=== PATIENT | female | born 1960 | race Caucasian/White ===

== ENCOUNTER → 2018-02-09 | Outpatient (CLI) | payer BC ==
--- NOTE | 2018-02-10 13:33 | MM ---
Reason for exam: screening (asymptomatic). Last mammogram was performed 11 years and 5 months ago. History: Patient is postmenopausal. Took hormonal contraceptives beginning at age 17. Physical Findings: A clinical breast exam by your physician is recommended on an annual basis and results should be correlated with mammographic findings. MG Screening Mammo w CAD Bilateral CC and MLO view(s) were taken. No prior studies available for comparison. The breast tissue is heterogeneously dense. This may lower the sensitivity of mammography. Finding: There are typically benign round calcifications in the left breast. There is no discrete abnormality. ASSESSMENT: Benign, BI-RAD 2 RECOMMENDATION: Routine screening mammogram of both breasts in 1 year.
== END | disposition home or self-care (01) ==
LOC: RADMAMWWP 15:19
PROVIDERS: ATTEND Family Medicine
DX: Z12.31 Encounter for screening mammogram for malignant neoplasm of breast (principal)
CPT/HCPCS: 77067

== ENCOUNTER → 2018-03-16 | Outpatient (CLI) | payer BC ==
--- NOTE | 2018-03-17 11:55 | ECHOF ---
Referral Reason:R00.2 palpitations MEASUREMENTS -------- HEIGHT: 157.5 cm WEIGHT: 79.4 kg BP: IVSd: 1.3 cm (0.6 - 1.1) LVIDd: 4.0 cm (3.9 - 5.3) LVPWd: 1.2 cm (0.6 - 1.1) IVSs: 1.4 cm LVIDs: 2.5 cm LVPWs: 1.6 cm LA Diam: 2.8 cm (2.7 - 3.8) LAESV Index (A-L): 27.32 ml/m Ao Diam: 2.4 cm (2.0 - 3.7) AV Cusp: 1.8 cm (1.5 - 2.6) LA Diam: 3.7 cm (2.7 - 3.8) MV EXCURSION: 17.245 mm (> 18.000) MV EF SLOPE: 88 mm/s (70 - 150) EPSS: 0.4 cm MV E Lorenzo: 0.68 m/s MV DecT: 209 ms MV A Lorenzo: 0.61 m/s MV E/A Ratio: 1.13 RAP: 5.00 mmHg RVSP: 21.33 mmHg FINDINGS -------- Sinus rhythm. This was a technically good study. The left ventricular size is normal. There is mild concentric left ventricular hypertrophy. Overa ll left ventricular systolic function is low-normal with, an EF between 50 - 55 %. The right ventricle is normal in size. The left atrial size is normal. Normal LA size by volume 22+/-6 ml/m2. The right atrial size is normal. Trace to mild aortic regurgitation. Mild mitral annular calcification present. Mild mitral regurgitation is present. Mild tricuspid regurgitation present. There is no evidence of pulmonary hypertension. The right v entricular systolic pressure, as measured by Doppler, is 21.33mmHg. There is no pulmonic regurgitation present. The aortic root size is normal. There is no pericardial effusion. CONCLUSIONS -------- 1. The left ventricular size is normal. 2. There is mild concentric left ventricular hypertrophy. 3. Overall left ventricular systolic function is low-normal with, an EF between 50 - 55 %. 4. The left atrial size is normal. 5. Trace to mild aortic regurgitation. 6. Mild mitral annular calcification present. 7. Mild mitral regurgitation is present. 8. Mild tricuspid regurgitation present. 9. There is no evidence of pulmonary hypertension. 10. The right ventricular systolic pressure, as measured by Doppler, is 21.33mmHg. 11. There is no pulmonic regurgitation present. 12. The aortic root size is normal. 13. There is no pericardial effusion. NEPHROLOGY SOCIAL WORKER: Rajwinder Kumar RDCS
== END ==
LOC: RADECHMAIN 14:53
PROVIDERS: ATTEND Family Medicine
DX: I08.3 Combined rheumatic disorders of mitral, aortic and tricuspid valves (principal)
CPT/HCPCS: 93306

== ENCOUNTER 2019-03-23 06:30 | Day surgery (SDC) | payer BC ==
[2019-03-16 15:06] VITALS: BMI 32.9
[~2019-03-23 06:30] MED LIST: DEXAMETHASONE SOD PHOSPHATE 10 MG/ML 1 ML VIAL IV ONE; HYDROmorphone 0.5 MG/0.5 ML SYRINGE IVP PRN; LACTATED RINGERS 1,000 ML IV SCH; LIDOCAINE 1% 20 ML VIAL (10MG/ML) FOR IV START INTRADERMA PRN; ONDANSETRON 4 MG/2 ML VIAL IVP ONE; ceFAZolin IN SWFI 2 GM/20 ML SYRINGE IVP ONE
[2019-03-23] MEDS ORDERED: fentaNYL (PF) 50 MCG/ML 2 ML AMP ONE (07:58)
[2019-03-23] MEDS ORDERED: PROPOFOL 10 MG/ML 20 ML VIAL IV ONE (07:58)
[2019-03-23] MEDS ORDERED: HYDROmorphone (PF) 1 MG/ML ONE (07:58)
[2019-03-23] MEDS ORDERED: NEOSTIGMINE 1 MG/ML 10 ML VIAL ONE (07:58)
[2019-03-23] MEDS ORDERED: ROCURONIUM BROMIDE 10 MG/ML 10 ML VIAL IV ONE (07:58)
[2019-03-23] MEDS ORDERED: LIDOCAINE 1% INJ 10MG/ML (20 ML MDV) ONE (07:58)
[2019-03-23] MEDS ORDERED: MIDAZOLAM 2 MG/2 ML VIAL ONE (07:58)
[2019-03-23] MEDS ORDERED: SUCCINYLCHOLINE CHLORIDE 100 MG/5 ML SYR IV ONE (07:58)
[2019-03-23] MEDS ORDERED: GLYCOPYRROLATE 0.2 MG/ML 2 ML VIAL ONE (07:58)
[2019-03-23] MEDS ORDERED: BUPIVACAINE (PF) 0.5% 30 ML VIAL SQ ONE (08:47)
[2019-03-23] MEDS ORDERED: LIDOCAINE 2% (PF) 20 MG/ML 10 ML AMP SQ ONE (08:47)
--- NOTE | 2019-03-23 10:03 | P.OP ---
Date of Procedure: 03/23/19 Preoperative Diagnosis: 1. Left arthritic hallux valgus 2. Left second crossover toe deformity Postoperative Diagnosis: Same Procedure(s) Performed: 1. Left first MTP arthrodesis 2. Left second toe Girdlestone-Nicolasa oqcdrp-eh-vlzhlwnb tendon transfer, MTP capsulotomy, and Z-lengthening of the long extensor tendon 3. Application of short leg splint by physician, left leg Anesthesia: GETA Surgeon: Cristofer Martinez Milk Vendor #1: Lashonda Richardson Estimated Blood Loss (ml): 5 IV fluids (ml): 1,000 Pathology: none sent Condition: stable Disposition: PACU Indications for Procedure: The patient is a very pleasant 58-year-old female who presented to my office with a painful left arthritic hallux valgus and second crossover toe deformity. She had failed over 6 months of nonsurgical treatment and requested surgery. Since she had failed a lengthy course of nonsurgical treatment I agreed that proceeding with surgery was reasonable. My recommendation was to address her severely arthritic hallux valgus with a first MTP fusion and correct the second toe deformity with an MTP capsulotomy, extensor tendon lengthening, and flexor to extensor tendon transfer. She had had previous surgery on her right foot and had recurrence of her lesser toe deformities. I discussed the potential risks and complication of surgery including but not limited to risk of anesthesia, superficial infection, deep infection, delayed wound healing, superficial wound necrosis, nonunion of the fusion site, malunion of the fusion site, syndromatic hardware, hardware failure, damage to local blood vessels or nerves, chronic pain, under correction of the deformity, overcorrection of the deformity, recurrent deformity of the second toe, a second floating toe, damage to local blood vessels or nerves in the second toe, generalized to satisfaction with surgery, pin site complication, DVT, PE, other medical complications, and possibly loss of life or limb. The patient voiced her understanding of these potential complications and also acknowledges that other less common complications are possible. She provided her verbal and written consent to go forward with surgery. Description of Procedure: The patient was identified in preoperative holding and the correct left leg was marked with my initials. I reviewed the consent form with the patient and her . All of their questions were answered. The patient was then brought back to the operating room. She was transferred to the OR table where a general anesthetic and preoperative antibiotics were given. A tourniquet was applied to the proximal aspect the left leg. All bony prominences were well-padded. A bump was placed on the left buttock to internally rotate the leg to neutral. The left leg was then prepped and draped in the standard sterile fashion. Prior to starting surgery timeout was performed identifying the correct patient, operative extremity, and procedure. The patient's leg was then elevated, exsanguinated with an Esmarch bandage, and the tourniquet was inflated to 250 mmHg. I began by outlining a straight dorsal incision to the first MTP joint. Skin incision was made a scalpel and dissection was carried down carefully through the subcutaneous tissue taking care to not undermine the skin flaps. The EHL tendon was identified, its sheath was incised, and the tendon was retracted laterally. The capsule was then incised longitudinally in line with the skin incision. The joint was circumferentially exposed. On inspection there is full thickness cartilage loss of both the first metatarsal head and base of the pr oximal phalanx. There were large osteophytes off the distal end of the first metatarsal that were contoured with a Ronguer. A K wire was then placed on the central aspect of the first metatarsal head. A 21 mm concave reamer was used to remove the remaining articular cartilage and subchondral bone down to healthy bleeding bone. The K wire was withdrawn and used to perforate the subchondral bone to facilitate fusion. A K wire was then placed down the central access of the proximal phalanx. A 21 mm convex reamer was used to remove the remaining articular cartilage down to the level of healthy, bleeding subchondral bone. The K wire was withdrawn and used to perforate the subchondral bone to help facilitate fusion. The joint was thoroughly irrigated. The joint was positioned for fusion and slight dorsiflexion and valgus and a K wire was placed from the medial aspect of the distal first metatarsal into the lateral aspect of the proximal phalanx. The toe was positioned and pinned in place the position of the fusion was verified with a flat plate and with fluoroscopy. A Snow 28 fusion plate was then positioned over the dorsal aspect of the first MTP joint. Once it was in acceptable position and it was pinned proximally and distally holding the plate centered on the bone. The targeting arm for a lag screw was placed in a nonlocking, partially threaded 2.7 mm cannulated lag screw was placed across the joint generating excellent compression. I then placed nonlocking screws proximal and distal to the fracture bring the plate down to bone. Locking screws were then placed proximally and distally. Final fluoroscopic images were taken verifying position of the fusion and hardware. The wound was thoroughly irrigated and closed in layers with a running 2-0 Vicryl for the capsule, 3-0 Monocryl for the deep subcu, and 3-0 nylon for the skin. Attention was then turned to the second toe. A longitudinal incision was made centered directly over the dorsal aspect of the proximal phalanx and MTP joint. Dissection was carried down carefully to the subcutaneous tissue. A Z- lengthening was performed of the long extensor tendon. The MTP capsule was sharply incised. A stab incision was made at the base of the second toe plantarly and the flexor tendon sheath was identified and incised. A mosquito hemostat was used to grasp the long flexor tendons. A 15 blade scalpel was then used to sharply release the long flexor tendons distally at the DIP flexion crease. Both tendons were brought up into the wound at the base of the second toe. The tendon was split along its midline raphae. A stab incision was made dorsally over the proximal phalanx and the extensor tendon mechanism. Mosquito hemostats were tunneled subperiosteally medial and lateral to the proximal phalanx and both limbs of the flexor tendon were transferred dorsally into the extensor mechanism. The toe was positioned and a 0.0625 K wire was driven from the tip of the toe across the MTP joint into the second metatarsal. The flexor tendon was then secured into the extensor mechanism with 3-0 FiberWire. The long extensor tendon was repaired in a lengthened position using 3-0 FiberWire. The pin was cut and capped. Both wounds were thoroughly irrigated and closed in layers. I verified that all instrument, sponge, and sharp counts were correct. A sterile dressing was applied. A well-padded bulky Rodriguez splint was placed with the ankle at neutral. The patient was awoken from her anesthetic, transferred to a gurney, and brought to the recovery room having encountered procedure well. Lashonda Richardson PA-C was required as a skilled customer support assistant for patient positioning, surgical exposure, retraction, performance effusion, closure of wound, application of dressing, and placement of splint. Plan: The patient is going to be discharged home as an outpatient. She is to remain strictly nonweightbearing on her operative extremity and a bulky Rodriguez splint. The patient's was instructed on twice daily pin site care with a Q-tip tipped and peroxide. She is going to be treated with aspirin 325 mg twice daily to lower her risk of a DVT. He was given a prescription for narcot ic pain medication and was instructed take a stool softener while taking narcotic pain medication. She'll follow-up in the office in 2 weeks for splint removal, wound check, and nonweightbearing x-rays of the left foot.
[2019-03-23 10:25] VITALS: TEMP 97.1
--- NOTE | 2019-03-23 11:03 | XR ---
Limited left foot HISTORY: Arthrodesis 2 intraoperative C-arm images document the procedure
--- NOTE | 2019-03-23 11:04 | FL ---
Fluoroscopy HISTORY: Arthrodesis 5 seconds fluoroscopy time supplied to the referring clinician. 2 intraoperative C-arm images docume nt the procedure. See dictated report from orthopedic surgery.
[2019-03-23 11:23] VITALS: RESP 18
[2019-03-23] MEDS ORDERED: oxyCODONE-APAP 5-325MG 1 EACH TAB PO ONE (11:48)
[2019-03-23 12:05] VITALS: BP 118/72; PULSE 79
--- NOTE | 2019-03-23 14:08 | P.ANPRN ---
Procedure Note - Anesthesia - Nerve Block Performed Left Popliteal Single Time Out Performed: Yes Date of Procedure: 03/23/19 Procedure Start Time: 10:55 Location of Patient Procedure: PreOp Indication: Acute Post-Operative Pain, Requested by physician Specifically requested for management of pain by DrKole: Cristofer Martinez Sedation Type: Sedate with meaningful contact maintained Preparation: Sterile Prep Position: Right Lateral Catheter: None Needle Types: Pajunk Needle Gauge: 20 Technique: Ultrasound Injectate: 0.5% Ropivacaine (see comment for volume) (20cc) Blood Aspirated: No Pain Paresthesia on Injection Noted: No Resistance on Injection: Normal Events: Uneventful and Well Tolerated
== END 2019-03-23 12:30 | disposition home or self-care (01) ==
LOC: OR 06:30
PROVIDERS: ATTEND Orthopaedic Surgery
DX: M20.22 Hallux rigidus, left foot (principal); M20.5X2 Other deformities of toe(s) (acquired), left foot; E78.5 Hyperlipidemia, unspecified; F41.9 Anxiety disorder, unspecified; J44.9 Chronic obstructive pulmonary disease, unspecified; F90.9 Attention-deficit hyperactivity disorder, unspecified type; M19.90 Unspecified osteoarthritis, unspecified site; M19.072 Primary osteoarthritis, left ankle and foot; I10 Essential (primary) hypertension; F17.210 Nicotine dependence, cigarettes, uncomplicated; R63.5 Abnormal weight gain; Z68.31 Body mass index [BMI] 31.0-31.9, adult; F32.9 Major depressive disorder, single episode, unspecified; Z79.1 Long term (current) use of non-steroidal anti-inflammatories (NSAID); Z79.899 Other long term (current) drug therapy; Z98.1 Arthrodesis status; Z98.51 Tubal ligation status; Z97.3 Presence of spectacles and contact lenses

== ENCOUNTER → 2020-04-19 | Outpatient (CLI) | payer BC ==
--- NOTE | 2020-04-19 16:25 | MR ---
EXAMINATION TYPE: MR lumbar spine wo/w con DATE OF EXAM: 04/19/2020 COMPARISON: None HISTORY: Low back pain CONTRAST: 9 mL intravenous Gadavist. TECHNIQUE: Multiplanar, multisequence images of the lumbar spine were acquired. FINDINGS: Cord terminates at the L1 level. L5-S1: No significant disc bulge or disc herniation. No spinal canal stenosis. No foraminal stenosi s. Minimal facet hypertrophy is present. L4-L5: Based disc bulge is present with anterior thecal sac flattening. No AP spinal canal stenosis i s present. Neural foramen are patent. L3-L4: No significant disc bulge or disc herniation. No spinal canal stenosis. No foraminal stenosi s. Mild facet hypertrophy and ligamentum flavum laxity is present with posterior lateral thecal sac compression. L2-L3: There is right paracentral disc bulge with mild anterior thecal sac contact. No AP spinal hernandez l stenosis present. Facet hypertrophy and ligamentum flavum laxity is posterior lateral thecal sac co mpression. Neural foramen are patent L1-L2: There is loss of disc height to this level. Right paracentral bulging is present with anterior thecal sac compression. No AP spinal canal stenosis present. Neural foramen are patent. Mild facet h ypertrophy is present. T12-L1: No significant disc bulge or disc herniation. No spinal canal stenosis. No foraminal stenos is. No abnormal enhancement. No disc enhancement is evident. IMPRESSION: 1. Degenerative disc changes, loss of disc height, and endplate changes L1-2. 2. Right paracentral disc bulging may have subligamentous disc extension in the right paracentral reg ion. This has mild anterior thecal sac compression without stenosis. 3. Mild right paracentral disc bulge L2-L3 with mild anterior thecal sac compression.
== END | disposition home or self-care (01) ==
LOC: RADMRIMAIN 14:45
PROVIDERS: ATTEND Family Medicine
DX: M51.26 Other intervertebral disc displacement, lumbar region (principal); M47.896 Other spondylosis, lumbar region
CPT/HCPCS: 72158; A9585

== ENCOUNTER → 2020-04-24 | Outpatient (CLI) | payer BC ==
--- NOTE | 2020-04-24 12:08 | MM ---
Reason for exam: screening (asymptomatic). Last mammogram was performed 2 years and 2 months ago. History: Patient is postmenopausal. Took hormonal contraceptives beginning at age 17. Physical Findings: A clinical breast exam by your physician is recommended on an annual basis and results should be correlated with mammographic findings. MG 3D Screening Mammo W/Cad Bilateral CC and MLO view(s) were taken. Prior study comparison: February 09, 2018, bilateral MG screening mammo w CAD. There are scattered fibroglandular densities. Benign oil cyst calcification on the left. No significant changes when compared with prior studies. ASSESSMENT: Benign, BI-RAD 2 RECOMMENDATION: Routine screening mammogram of both breasts in 1 year.
== END | disposition home or self-care (01) ==
LOC: RADMAMWWP 07:18
PROVIDERS: ATTEND Family Medicine
DX: Z12.31 Encounter for screening mammogram for malignant neoplasm of breast (principal)
CPT/HCPCS: 77063; 77067

== ENCOUNTER 2020-07-24 19:36 | Inpatient (IN) | payer BC ==
--- NOTE | 2020-07-24 19:47 | ED ---
Psych HPI <Sharmin Baldwin - Last Filed: 07/24/20 22:52> <Zac Mendez - Last Filed: 07/25/20 09:44> - General Source: RN notes reviewed, old records reviewed Limitations: altered mental status, physical limitation (Patient refuses to speak) - History of Present Illness MD Complaint: suicidal ideation, feels depressed, other (Alcohol intoxication) -: unknown Quality: intermittent Improves With: none Worsens With: none Context: recent alcohol abuse, recent drug abuse Treatments Prior to Arrival: placed on mental health hold <Zac Beal - Last Filed: 07/27/20 22:47> - General Stated Complaint: Mental Health Time Seen by Provider: 07/24/20 19:47 - History of Present Illness Initial Comments: This is a 5-year-old female DF for evaluation patient's for psychiatric evaluation patient is intoxicated answer questions (Zac Beal) - Related Data Previous Rx's Medication Instructions Recorded Atorvastatin [Lipitor] 10 mg PO DAILY 14 Days tab 07/27/20 Bacitracin Zinc Oint 1 applic TOPICAL BID 14 Days 07/27/20 applic Cyclobenzaprine [Flexeril] 10 mg PO DAILY 14 Days tab 07/27/20 FLUoxetine HCL [PROzac] 20 mg PO DAILY 30 Days cap 07/27/20 Nicotine 14Mg/24Hr Patch [Habitrol] 1 patch TRANSDERM DAILY 30 Days 07/27/20 patch Allergies Allergy/AdvReac Type Severity Reaction Status Date / Time naproxen [From Aleve] Allergy Anaphylaxis Verified 07/24/20 23:09 phenazopyridine Allergy Rash/Hives Verified 07/24/20 23:09 [From Pyridium] Review of Systems ROS Other: All systems not noted in ROS Statement are negative. <Sharmin Baldwin - Last Filed: 07/24/20 22:52> ROS Other: All systems not noted in ROS Statement are negative. <Zac Mendez - Last Filed: 07/25/20 09:44> ROS Other: All systems not noted in ROS Statement are negative. <Zac Beal - Last Filed: 07/27/20 22:47> ROS Statement: Those systems with pertinent positive or pertinent negative responses have been documented in the HPI. Past Medical History Past Medical History: Chest Pain / Angina, Osteoarthritis (OA) Additional Past Medical History / Comment(s): irreg. heart rate, kidney stones, inhaler used for breathing issues History of Any Multi-Drug Resistant Organisms: None Reported Past Surgical History: Back Surgery, Orthopedic Surgery, Tubal Ligation Additional Past Surgical History / Comment(s): rt thumb surgery tendon and trigger finger , rt carpal tunnel, rt rotator cuff , bunionectomy and hammer toe rt foot, c 5-6 spinal fusion Past Anesthesia/Blood Transfusion Reactions: No Reported Reaction Past Psychological History: Depression Past Alcohol Use History: Occasional Additional Past Alcohol Use History / Comment(s): smoker 30 years <1/2 ppd Past Drug Use History: None Reported - Past Family History Mother Family Medical History: No Reported History <Zac Beal Last Filed: 07/27/20 22:47> General Exam General appearance: alert, in no apparent distress Head exam: Present: atraumatic, normocephalic, normal inspection Eye exam: Present: normal appearance, PERRL, EOMI. Absent: scleral icterus, conjunctival injection, periorbital swelling ENT exam: Present: normal exam, mucous membranes moist Neck exam: Present: normal inspection. Absent: tenderness, meningismus, lymphadenopathy Respiratory exam: Present: normal lung sounds bilaterally. Absent: respiratory distress, wheezes, rales, rhonchi, stridor Cardiovascular Exam: Present: regular rate, normal rhythm, normal heart sounds. Absent: systolic murmur, diastolic murmur, rubs, gallop, clicks GI/Abdominal exam: Present: soft, normal bowel sounds. Absent: distended, tenderness, guarding, rebound, rigid Extremities exam: Present: normal inspection, full ROM, normal capillary refill. Absent: tenderness, pedal edema, joint swelling, calf tenderness Back exam: Present: normal inspection Neurological exam: Present: alert, oriented X3, CN II-XII intact Psychiatric exam: Present: normal affect, normal mood Skin exam: Present: warm, dry, intact, normal color. Absent: rash <Zac Beal Last Filed: 07/27/20 22:47> Course <Zac Beal Last Filed: 07/27/20 22:47> Vital Signs 07/24/20 07/24/20 07/25/20 19:45 19:49 06:56 Temperature 98.8 F Pulse Rate 72 80 Respiratory 17 18 16 Rate Blood Pressure 153/122 120/63 O2 Sat by Pulse 100 100 Oximetry - Reevaluation(s) Reevaluation #1: 07/24/20 21:03 Medical records reviewed 07/24/20 21:03 Patient will be clinically sober 0400 (Zac Beal) Procedures - Laceration Laceration #1 Consent Obtained: verbal consent Indication: laceration Site: upper extremity (Right wrist, palmar aspect) Size (cm): 5 Description: linear Depth: simple, single layer Anesthetic Used: lidocaine 1% Anesthesia Technique: local infiltration Amount (mls): 4 Pre-repair: irrigated extensively Type of Sutures: nylon Size of Sutures: 5-0 Number of Sutures: 9 Technique: simple, interrupted Patient Tolerated Procedure: well <Sharmin Baldwin - Last Filed: 07/24/20 22:52> Medical Decision Making - Lab Data Result diagrams: 07/24/20 20:01 07/24/20 20:01 <Sharmin Baldwin - Last Filed: 07/24/20 22:52> - Lab Data Result diagrams: 07/24/20 20:01 07/24/20 20:01 <Zac Mendez - Last Filed: 07/25/20 09:44> - Lab Data Result diagrams: 07/26/20 11:30 07/26/20 11:30 <Zac Beal - Last Filed: 07/27/20 22:47> - Medical Decision Making 59 female to ED w alcohol intoxication to be admitted for psychiatric evaluation and treatment (Zac Beal) - Lab Data Lab Results 07/24/20 07/24/20 07/24/20 Range/Units 20:01 20:01 20:01 WBC 7.9 (3.8-10.6) k/uL RBC 4.92 (3.80-5.40) m/uL Hgb 15.7 (11.4-16.0) gm/dL Hct 46.4 H (34.0-46.0) % MCV 94.3 (80.0-100.0) fL MCH 31.8 (25.0-35.0) pg MCHC 33.7 (31.0-37.0) g/dL RDW 12.8 (11.5-15.5) % Plt Count 328 (150-450) k/uL Neutrophils % 60 % Lymphocytes % 31 % Monocytes % 5 % Eosinophils % 1 % Basophils % 1 % Neutrophils # 4.8 (1.3-7.7) k/uL Lymphocytes # 2.4 (1.0-4.8) k/uL Monocytes # 0.4 (0-1.0) k/uL Eosinophils # 0.1 (0-0.7) k/uL Basophils # 0.1 (0-0.2) k/uL Sodium 141 (137-145) mmol/L Potassium 4.2 (3.5-5.1) mmol/L Chloride 110 H (98-107) mmol/L Carbon Dioxide 22 (22-30) mmol/L Anion Gap 9 mmol/L BUN 12 (7-17) mg/dL Creatinine 0.66 (0.52-1.04) mg/dL Est GFR (CKD-EPI)AfAm >90 (>60 ml/min/1.73 sqM) Est GFR (CKD-EPI)NonAf >90 (>60 ml/min/1.73 sqM) Glucose 119 H (74-99) mg/dL Calcium 10.0 (8.4-10.2) mg/dL Total Bilirubin 0.5 (0.2-1.3) mg/dL AST 36 (14-36) U/L ALT 36 H (4-34) U/L Alkaline Phosphatase 77 (38-126) U/L Ammonia 20 (<30) umol/L Total Protein 7.3 (6.3-8.2) g/dL Albumin 4.4 (3.5-5.0) g/dL Urine Color Urine Appearance (Clear) Urine pH (5.0-8.0) Ur Specific [place] (1.001-1.035) Urine Protein (Negative) Urine Glucose (UA) (Negative) Urine Ketones (Negative) Urine Blood (Negative) Urine Nitrite (Negative) Urine Bilirubin (Negative) Urine Urobilinogen (<2.0) mg/dL Ur Leukocyte Esterase (Negative) Salicylates <1.0 mg/dL Urine Opiates Screen (NotDetected) Ur Oxycodone Screen (NotDetected) Urine Methadone Screen (NotDetected) Ur Propoxyphene Screen (NotDetected) Acetaminophen <10.0 ug/mL Ur Barbiturates Screen (NotDetected) U Tricyclic Antidepress (NotDetected) Ur Phencyclidine Scrn (NotDetected) Ur Amphetamines Screen (NotDetected) U Methamphetamines Scrn (NotDetected) U Benzodiazepines Scrn (NotDetected) Urine Cocaine Screen (NotDetected) U Marijuana (THC) Screen (NotDetected) Serum Alcohol 279 H* mg/dL 07/25/20 Range/Units 07:45 WBC (3.8-10.6) k/uL RBC (3.80-5.40) m/uL Hgb (11.4-16.0) gm/dL Hct (34.0-46.0) % MCV (80.0-100.0) fL MCH (25.0-35.0) pg MCHC (31.0-37.0) g/dL RDW (11.5-15.5) % Plt Count (150-450) k/uL Neutrophils % % Lymphocytes % % Monocytes % % Eosinophils % % Basophils % % Neutrophils # (1.3-7.7) k/uL Lymphocytes # (1.0-4.8) k/uL Monocytes # (0-1.0) k/uL Eosinophils # (0-0.7) k/uL Basophils # (0-0.2) k/uL Sodium (137-145) mmol/L Potassium (3.5-5.1) mmol/L Chloride (98-107) mmol/L Carbon Dioxide (22-30) mmol/L Anion Gap mmol/L BUN (7-17) mg/dL Creatinine (0.52-1.04) mg/dL Est GFR (CKD-EPI)AfAm (>60 ml/min/1.73 sqM) Est GFR (CKD-EPI)NonAf (>60 ml/min/1.73 sqM) Glucose (74-99) mg/dL Calcium (8.4-10.2) mg/dL Total Bilirubin (0.2-1.3) mg/dL AST (14-36) U/L ALT (4-34) U/L Alkaline Phosphatase (38-126) U/L Ammonia (<30) umol/L Total Protein (6.3-8.2) g/dL Albumin (3.5-5.0) g/dL Urine Color Yellow Urine Appearance Clear (Clear) Urine pH 5.5 (5.0-8.0) Ur Specific [place] 1.015 (1.001-1.035) Urine Protein Negative (Negative) Urine Glucose (UA) Negative (Negative) Urine Ketones Negative (Negative) Urine Blood Negative (Negative) Urine Nitrite Negative (Negative) Urine Bilirubin Negative (Negative) Urine Urobilinogen <2.0 (<2.0) mg/dL Ur Leukocyte Esterase Negative (Negative) Salicylates mg/dL Urine Opiates Screen Not Detected (NotDetected) Ur Oxycodone Screen Not Detected (NotDetected) Urine Methadone Screen Not Detected (NotDetected) Ur Propoxyphene Screen Not Detected (NotDetected) Acetaminophen ug/mL Ur Barbiturates Screen Not Detected (NotDetected) U Tricyclic Antidepress Detected H (NotDetected) Ur Phencyclidine Scrn Not Detected (NotDetected) Ur Amphetamines Screen Not Detected (NotDetected) U Methamphetamines Scrn Not Detected (NotDetected) U Benzodiazepines Scrn Not Detected (NotDetected) Urine Cocaine Screen Not Detected (NotDetected) U Marijuana (THC) Screen Detected H (NotDetected) Serum Alcohol mg/dL Disposition <Sharmin Baldwin - Last Filed: 07/24/20 22:52> Time of Disposition: 09:44 <Zac Mendez - Last Filed: 07/25/20 09:44> Is patient prescribed a controlled substance at d/c from ED?: No <Zac Beal - Last Filed: 07/27/20 22:47> Clinical Impression: Depression, Suicide attempt Disposition: TRANSFER TO PSYCH HOSP/UNIT Condition: Fair
[2020-07-24 20:11] LABS: Basophils # (A) 0.1 k/uL (0-0.2); Basophils % (A) 1 %; Eosinophils # (A) 0.1 k/uL (0-0.7); Eosinophils % (A) 1 %; HCT 46.4 % (34.0-46.0); HGB 15.7 gm/dL (11.4-16.0); Lymphocytes # (A) 2.4 k/uL (1.0-4.8); Lymphocytes % (A) 31 %; MCH 31.8 pg (25.0-35.0); MCHC 33.7 g/dL (31.0-37.0); MCV 94.3 fL (80.0-100.0); Mean Platelet Volume 7.1; Monocytes # (A) 0.4 k/uL (0-1.0); Monocytes % (A) 5 %; Neutrophils # (A) 4.8 k/uL (1.3-7.7); Neutrophils % (A) 60 %; Platelet Count 328 k/uL (150-450); RBC 4.92 m/uL (3.80-5.40); RDW 12.8 % (11.5-15.5); WBC 7.9 k/uL (3.8-10.6)
[2020-07-24 20:21] LABS: ALT 36 U/L (4-34); AST 36 U/L (14-36); Acetaminophen <10.0 ug/mL; African American GFR (CKD) >90 (>60 ml/min/1.73 sqM); Albumin 4.4 g/dL (3.5-5.0); Alkaline Phosphatase 77 U/L (38-126); Anion Gap 9 mmol/L; Blood Urea Nitrogen 12 mg/dL (7-17); Carbon Dioxide 22 mmol/L (22-30); Chloride 110 mmol/L (98-107); Glucose 119 mg/dL (74-99); Non-African American GFR(CKD) >90 (>60 ml/min/1.73 sqM); Potassium 4.2 mmol/L (3.5-5.1); Salicylate <1.0 mg/dL; Sodium 141 mmol/L (137-145); Total Bilirubin 0.5 mg/dL (0.2-1.3); Total Protein 7.3 g/dL (6.3-8.2)
[2020-07-24 20:24] LABS: Alcohol 279 mg/dL
[2020-07-24] MEDS ORDERED: LIDOCAINE 1% INJ 10MG/ML (20 ML MDV) SQ ONE (22:16)
[2020-07-24] MEDS ORDERED: DIPH,PERTUS(ACELL)TETVAC-LF 0.5 ML VIAL IM ONE (22:16)
[2020-07-25 07:50] LABS: Appearance,Urine Clear (Clear); Bilirubin,Urine Negative (Negative); Blood,Urine Negative (Negative); Color,Urine Yellow; Glucose,Urine (UA) Negative (Negative); Ketones,Urine Negative (Negative); Leukocyte Esterase,Urine Negative (Negative); Nitrite,Urine Negative (Negative); PH, Urine 5.5 (5.0-8.0); Protein,Urine Negative (Negative); Specific Gravity,Urine 1.015 (1.001-1.035); Urobilinogen,Urine <2.0 mg/dL (<2.0)
[2020-07-25 08:01] LABS: Amphetamine Screen,Urine Not Detected (NotDetected); Barbiturate Screen,Urine Not Detected (NotDetected); Benzodiazepines Screen,Urine Not Detected (NotDetected); Cocaine Screen,Urine Not Detected (NotDetected); Methadone Screen, Urine Not Detected (NotDetected); Opiate Screen,Urine Not Detected (NotDetected); Oxycodone Screen, Urine Not Detected (NotDetected); Phencyclidine Screen,Urine Not Detected (NotDetected); Tricyclic Antidepressant,Urine Detected (NotDetected); Urn Cannabinoid Scrn Detected (NotDetected)
[2020-07-25] MEDS ORDERED: LORazepam 1 MG TAB PO PRN (10:48)
[2020-07-25] MEDS ORDERED: MAGNESIUM HYDROXIDE 2,400 MG/10 ML CUP PO PRN (10:48)
[2020-07-25] MEDS ORDERED: MAG HYDROX/AL HYDROX/SIMETH 30 ML CUP PO PRN (10:48)
[2020-07-25] MEDS: CYCLOBENZAPRINE 10 MG TAB PO SCH (12:22)
[2020-07-25] MEDS: ATORVASTATIN 10 MG TAB PO SCH (12:22)
[2020-07-25] MEDS: PARoxetine 20 MG TAB PO SCH (12:22)
--- NOTE | 2020-07-25 14:59 | P.CONS ---
History of Present Illness - Reason for Consult Consult date: 07/25/20 Medical management Requesting physician: Rayshawn Calvin - Chief Complaint Continue wrist - History of Present Illness Consultation: This is 59-year-old patient of Dr. Nando Gallagher. Patient's chronic stable medical conditions include osteoarthritis, kidney stones, depression, lower back muscle spasms hyperlipidemia. Patient presents to the ER with her was intoxicated. Patient states she was going about her usual shows yesterday and decided to drink alcohol. Normally doesn't do the same. She then landed up cutting her wrist laceration and: To in the next room. We'll brought into the ER. Alcohol was 279. Urine drug screen was positive for marijuana. Patient denies suicidal ideation. Not sure why she did it. She states depression is controlled. Received stitches in the ER. DTaP injection. Review of systems: GEN.: None EYES: None HEENT: None NECK: None RESPIRATORY: Occasional cough CARDIOVASCULAR: None GASTROINTESTINAL: None GENITOURINARY: None MUSCULOSKELETAL: Dressing over the right wrist LYMPHATICS: None HEMATOLOGICAL: None PSYCHIATRY: Slightly anxious NEUROLOGICAL: None Past medical history to include: Osteoarthritis, kidney stones, COPD, depression, hyperlipidemia Social history: Patient works at [employer]. . Smoked half a pack a day for over 30 years. Normally drinks a small amount of alcohol daily. Family history: Reviewed, noncontributory to presentation Physical examination: VITAL SIGNS: 97.1, 85, 16, 145/95, 100% room air GENERAL: BMI 38.4, sitting at edge of bed, comfortable. EYES: Pupils equal. Conjunctiva normal. HEENT: External appearance of nose and ears normal, oral cavity grossly normal. NECK: JVD not raised; masses not palpable. HEART: First and second heart sounds are normal; no edema. LUNGS:[ Respiratory rate normal; decreased breath sounds. ABDOMEN: Soft, nontender, liver spleen not palpable, no masses palpable. PSYCH: Alert and oriented x3; mood and affect normal MUSCULAR skeletal-dressing over the right wrist. NEUROLOGICAL: Cranial nerves grossly intact; no facial asymmetry, power and sensation grossly intact. LYMPHATICS: No lymph nodes palpable in the axilla and neck INVESTIGATIONS, reviewed in the clinical context: White count 7.9 hemoglobin 15.7 platelets 328 potassium 4.2 creatinine 0.66 UA negative, urine drug screen positive for tricyclic antidepressants, marijuana Serum alcohol 279 Assessment: -Acute alcohol intoxication upon presentation -Right wrist laceration on the palmar side patient received stitches in the ER. Received DTaP immunization. Has a dressing over the same. We will use bacitracin cream -Obesity BMI 38.4 -Chronic nicotine dependence cigarette smoker -COPD in a smoker -Hyperlipidemia -Muscle spasms lower back, chronic Plan: We'll prescribe a nicotine patch. Home medications to continue. Given that patient does not drink on a regular basis highly doubt patient to be having withdrawals. Local antiseptic cream on the wrist. Patient to follow-up with his family doctor for discharge. Thank you Dr. Calvin Past Medical History Past Medical History: Chest Pain / Angina, Osteoarthritis (OA) Additional Past Medical History / Comment(s): irreg. heart rate, kidney stones, inhaler used for breathing issues History of Any Multi-Drug Resistant Organisms: None Reported Past Surgical History: Back Surgery, Orthopedic Surgery, Tubal Ligation Additional Past Surgical History / Comment(s): rt thumb surgery tendon and trigger finger , rt carpal tunnel, rt rotator cuff , bunionectomy and hammer toe rt foot, c 5-6 spinal fusion Past Anesthesia/Blood Transfusion Reactions: No Reported Reaction Past Psychological History: Depression Smoking Status: Former smoker, Vaper Past Alcohol Use History: Occasional Additional Past Alcohol Use History / Comment(s): smoker 30 years <1/2 ppd Past Drug Use History: None Reported - Past Family History Mother Family Medical History: No Reported History Medications and Allergies Home Medications Medication Instructions Recorded Confirmed Type Cyclobenzaprine [Flexeril] 10 mg PO DAILY 03/16/19 07/24/20 History PARoxetine HCL [Paxil] 20 mg PO DAILY 03/16/19 07/24/20 History Atorvastatin [Lipitor] 10 mg PO DAILY 07/24/20 07/24/20 History Allergies Allergy/AdvReac Type Severity Reaction Status Date / Time naproxen [From Aleve] Allergy Anaphylaxis Verified 07/24/20 23:09 phenazopyridine Allergy Rash/Hives Verified 07/24/20 23:09 [From Pyridium] Physical Exam Vitals: Vital Signs Temp Pulse Pulse Resp BP BP Pulse Ox 07/25/20 12:10 97.1 F L 85 16 145/95 07/25/20 06:56 80 16 120/63 100 07/24/20 19:49 18 07/24/20 19:45 98.8 F 72 17 153/122 100 Intake and Output 07/24/20 07/25/20 07/25/20 22:59 06:59 14:59 Other: Weight 95.254 kg 95.254 kg Results CBC & Chem 7: 07/24/20 20:01 07/24/20 20:01 Labs: Abnormal Lab Results - Last 24 Hours (Table) 07/24/20 07/24/20 07/25/20 Range/Units 20:01 20:01 07:45 Hct 46.4 H (34.0-46.0) % Chloride 110 H (98-107) mmol/L Glucose 119 H (74-99) mg/dL ALT 36 H (4-34) U/L U Tricyclic Antidepress Detected H (NotDetected) U Marijuana (THC) Screen Detected H (NotDetected) Serum Alcohol 279 H* mg/dL
[2020-07-25] MEDS ORDERED: NICOTINE 14MG/24HR PATCH TRANSDERM SCH (15:00)
[2020-07-25] MEDS: BACITRACIN ZINC 500 UNIT/GM OINT 28.4 GM TUBE TOPICAL SCH ×2 (18:00→22:10)
[2020-07-25] MEDS: NICOTINE 14MG/24HR PATCH TRANSDERM SCH (18:00)
[2020-07-26] MEDS: PARoxetine 20 MG TAB PO SCH (08:48)
[2020-07-26] MEDS: NICOTINE 14MG/24HR PATCH TRANSDERM SCH (08:48)
[2020-07-26] MEDS: ATORVASTATIN 10 MG TAB PO SCH (08:48)
[2020-07-26] MEDS: CYCLOBENZAPRINE 10 MG TAB PO SCH (08:48)
[2020-07-26] MEDS: BACITRACIN ZINC 500 UNIT/GM OINT 28.4 GM TUBE TOPICAL SCH ×2 (08:49→22:02)
--- NOTE | 2020-07-26 10:35 | P.HP ---
Psychiatric H&P - . H&P Date: 07/26/20 History & Physical: Allergies Allergy/AdvReac Type Severity Reaction Status Date / Time naproxen From Aleve Allergy Anaphylaxis Verified 07/24/20 23:09 phenazopyridine Allergy Rash/Hives Verified 07/24/20 23:09 From Pyridium Vital Signs Temp 98.2 F 07/26/20 06:48 Pulse 99 07/26/20 08:47 Resp 16 07/26/20 06:48 BP 144/86 07/26/20 08:47 Pulse Ox 100 07/25/20 06:56 Intake & Output 07/25/20 07/26/20 07/26/20 18:59 06:59 18:59 Weight 95.254 kg Laboratory Last Values WBC 7.9 k/uL (3.8-10.6) 07/24/20 20: RBC 4.92 m/uL (3.80-5.40) 07/24/20 20:01 Hgb 15.7 gm/dL (11.4-16.0) 07/24/20 20:01 Hct 46.4 % (34.0-46.0) H 07/24/20 20:01 MCV 94.3 fL (80.0-100.0) 07/24/20 20: MCH 31.8 pg (25.0-35.0) 07/24/20 20:01 MCHC 33.7 g/dL (31.0-37.0) 07/24/20 20:01 RDW 12.8 % (11.5-15.5) 07/24/20 20:01 Plt Count 328 k/uL (150-450) 07/24/20 20:01 Neutrophils % 60 % 07/24/20 20:01 Lymphocytes % 31 % 07/24/20 20:01 Monocytes % 5 % 07/24/20 20:01 Eosinophils % 1 % 07/24/20 20:01 Basophils % 1 % 07/24/20 20:01 Neutrophils # 4.8 k/uL (1.3-7.7) 07/24/20 20:01 Lymphocytes # 2.4 k/uL (1.0-4.8) 07/24/20 20:01 Monocytes # 0.4 k/uL (0-1.0) 07/24/20 20:01 Eosinophils # 0.1 k/uL (0-0.7) 07/24/20 20: Basophils # 0.1 k/uL (0-0.2) 07/24/20 20:01 Sodium 141 mmol/L (137-145) 07/24/20 20: Potassium 4.2 mmol/L (3.5-5.1) 07/24/20 20: Chloride 110 mmol/L (98-107) H 07/24/20 20: Carbon Dioxide 22 mmol/L (22-30) 07/24/20 20: Anion Gap 9 mmol/L 07/24/20 20: BUN 12 mg/dL (7-17) 07/24/20 20: Creatinine 0.66 mg/dL (0.52-1.04) 07/24/20 20: Est GFR (CKD-EPI)AfAm >90 (>60 ml/min/1.73 sqM) 07/24/20 20: Est GFR (CKD-EPI)NonAf >90 (>60 ml/min/1.73 sqM) 07/24/20 20: Glucose 119 mg/dL (74-99) H 07/24/20 20: Calcium 10.0 mg/dL (8.4-10.2) 07/24/20 20: Total Bilirubin 0.5 mg/dL (0.2-1.3) 07/24/20 20: AST 36 U/L (14-36) 07/24/20 20: ALT 36 U/L (4-34) H 07/24/20 20: Alkaline Phosphatase 77 U/L (38-126) 07/24/20 20: Ammonia 20 umol/L (<30) 07/24/20 20: Total Protein 7.3 g/dL (6.3-8.2) 07/24/20 20: Albumin 4.4 g/dL (3.5-5.0) 07/24/20 20: Urine Color Yellow 07/25/20 07:45 Urine Appearance Clear (Clear) 07/25/20 07:45 Urine pH 5.5 (5.0-8.0) 07/25/20 07:45 Ur Specific [place] 1.015 (1.001-1.035) 07/25/20 07:45 Urine Protein Negative (Negative) 07/25/20 07:45 Urine Glucose (UA) Negative (Negative) 07/25/20 07:45 Urine Ketones Negative (Negative) 07/25/20 07:45 Urine Blood Negative (Negative) 07/25/20 07:45 Urine Nitrite Negative (Negative) 07/25/20 07:45 Urine Bilirubin Negative (Negative) 07/25/20 07:45 Urine Urobilinogen <2.0 mg/dL (<2.0) 07/25/20 07:45 Ur Leukocyte Esterase Negative (Negative) 07/25/20 07:45 Salicylates <1.0 mg/dL 07/24/20 20:01 Urine Opiates Screen Not Detected (NotDetected) 07/25/20 07:45 Ur Oxycodone Screen Not Detected (NotDetected) 07/25/20 07:45 Urine Methadone Screen Not Detected (NotDetected) 07/25/20 07:45 Ur Propoxyphene Screen Not Detected (NotDetected) 07/25/20 07:45 Acetaminophen <10.0 ug/mL 07/24/20 20:01 Ur Barbiturates Screen Not Detected (NotDetected) 07/25/20 07:45 U Tricyclic Antidepress Detected (NotDetected) H 07/25/20 07:45 Ur Phencyclidine Scrn Not Detected (NotDetected) 07/25/20 07:45 Ur Amphetamines Screen Not Detected (NotDetected) 07/25/20 07:45 U Methamphetamines Scrn Not Detected (NotDetected) 07/25/20 07:45 U Benzodiazepines Scrn Not Detected (NotDetected) 07/25/20 07:45 Urine Cocaine Screen Not Detected (NotDetected) 07/25/20 07:45 U Marijuana (THC) Screen Detected (NotDetected) H 07/25/20 07:45 Serum Alcohol 279 mg/dL H* 07/24/20 20:01 07/26/20 10:22 IDENTIFYING DATA: Patient is a 59-year-old female with significant history of osteoarthritis who was admitted for suicidal ideation with attempt by cutting her right wrist in the context of alcohol use. HPI: Patient presented to the hospital on 07/24/2020 brought in by her family to the emergency department after she cut her right wrist in the context of heavy alcohol use. The patient reports that she was drinking "shot of vodka here and there" in between tasks at home after work and then blanked out. Patient remembers telling her that "my son Filipe is mad at me" but does not recall cutting herself. Upon presentation to the emergency department, the patient's serum alcohol level was 279. In regards to mood, the patient is not endorsing any significant symptoms of depression at this time. She denies any hopelessness, helplessness, problems with sleep, bumps of appetite, or suicidal ideation, intention, and/or plan. She reports no homicidal ideation, intention, and/or plan. She expresses great regret and remorse for her actions. She has been. She diagnosed with depression and has been managed with Paxil since 2006. She reports that she became depressed after her son committed suicide in 2006. She endorses anhedonia since then. She also reports a prior attempt at suicide at age is 16 years old. She reported that up after a boyfriend cheated on her she overdosed on penicillin. Patient reports that her family has been very supportive and that they will be removing any alcohol inside the home. She denies any access to firearms or any weapons. She does not endorse any significant symptoms of bipolar disorder. She reports no flight of ideas, racing thoughts, or increased goal-directed behavior. She denies any history of psychosis. She reports no auditory or visual hallucinations. She denies any paranoia or delusions. In regards to substance use, the patient does report significant alcohol use. She would consume a quarter of a bottle of vodka 2-3 times per week as well as drink wine occasionally at bedtime. She denies any history of withdrawal symptoms. She reports no prior rehabilitation. She quit cigarettes 2 weeks ago in favor of a vape pen. She reported occasional marijuana use. She denies any other illicit drug use. PAST PSYCHIATRIC HISTORY: Patient states that he has been diagnosed with depression since 2006. She has been on Paxil since 2006. Patient denies any previous psychiatric hospitalizations. Her mental health was managed by her primary care physician. She reports one prior attempt at suicide at the age of [age] years old by overdose. PMH: Osteoarthritis ALLERGIES: as per EMR CHEMICAL DEPENDENCY HISTORY: as per HPI FAMILY PSYCHIATRIC/SUBSTANCE USE HISTORY: Paternal grandmother - alcohol use SOCIAL HISTORY: Patient was born and raised in [place]. She currently lives with her in [facility] with their 2 cats. She is currently on her second marriage and has been for 5 years. Her first marriage ended in 1992. Her son committed suicide at the age of 2727 years old. She has a 36-year-old daughter and a 35-year-old son were very supportive. She is currently employed with [employer]. Highest level of education is some college. She is of the [employer] but is nonpracticing. MENTAL STATUS EXAM: General Appearance: Patient appears to be stated age is alert, directable, and attempts to cooperate. Patient appears to have fair hygiene and grooming. Bandaged up laceration on her right wrist. Behavior: Patient is seated without any agitated behavior. Psychomotor activity is normal. Speech: Patient's speech is fluent and nonpressured. Mood/Affect: Patient reports their mood is embarrassed and remorseful, affect is congruent and appropriately tearful. Suicidality/Homicidality: Patient denies having any homicidal ideation intent or plan. Denies any suicidal ideations intent or plan Perceptions: Patient denies any visual hallucinations and denies any auditory hallucinations Though content/process: There is no evidence of any delusional thought content and thought process is linear and goal-directed. Memory and concentration: AOX3, grossly intact for the purposes of this session. Can spell "WORLD" backwards Judgment and insight: Fair STRENGTHS/WEAKNESSES: Strengths include supportive family, housing, employment. Weakness is that patient has a son who committed suicide in 2006. INTELLECT: average IMPRESSIONS: Major Depressive disorder, recurrent, severe Alcohol use disorder PLAN: -Patient is admitted under voluntary status to [facility]HU for stabilization of psychiatric symptoms and safety. Patient signed adult voluntary form and medication consent and is placed in patient's chart. -Medications : We will change Paxil to Prozac 20 mg po daily for better side effect profile and management of depression. Patient has also had a history of nonadherence with Paxil which led to discontinuation syndrome. -Ativan and Geodon PRN for agitation/aggression -Patient was counselled on substance abuse and desired to cut back on use -Patient was informed of the risks, benefits and side effects of the medication and patient verbally consented to taking the medications. Patient signed med consent form and was placed in chart. -Internal Medicine consult to perform medical evaluation and physical. -SW on board for discharge planning. Encourage patient to participate in groups to work on coping skills.
[2020-07-26 12:10] LABS: Basophils # (A) 0.1 k/uL (0-0.2); Basophils % (A) 1 %; Eosinophils # (A) 0.1 k/uL (0-0.7); Eosinophils % (A) 1 %; HCT 49.3 % (34.0-46.0); HGB 15.9 gm/dL (11.4-16.0); Lymphocytes # (A) 1.2 k/uL (1.0-4.8); Lymphocytes % (A) 16 %; MCH 30.6 pg (25.0-35.0); MCHC 32.4 g/dL (31.0-37.0); MCV 94.7 fL (80.0-100.0); Mean Platelet Volume 7.2; Monocytes # (A) 0.5 k/uL (0-1.0); Monocytes % (A) 6 %; Neutrophils # (A) 5.9 k/uL (1.3-7.7); Neutrophils % (A) 76 %; Platelet Count 331 k/uL (150-450); RDW 13.2 % (11.5-15.5); WBC 7.9 k/uL (3.8-10.6)
[2020-07-26 12:25] LABS: ALT 37 U/L (4-34); AST 37 U/L (14-36); African American GFR (CKD) >90 (>60 ml/min/1.73 sqM); Albumin 4.4 g/dL (3.5-5.0); Alkaline Phosphatase 83 U/L (38-126); Anion Gap 5 mmol/L; Blood Urea Nitrogen 14 mg/dL (7-17); Calcium 10.5 mg/dL (8.4-10.2); Carbon Dioxide 29 mmol/L (22-30); Chloride 103 mmol/L (98-107); Glucose 99 mg/dL (74-99); Non-African American GFR(CKD) >90 (>60 ml/min/1.73 sqM); Potassium 4.9 mmol/L (3.5-5.1); Sodium 137 mmol/L (137-145); Total Protein 7.4 g/dL (6.3-8.2)
[2020-07-26 13:50] LABS: Cholesterol 255 mg/dL (<200); HDL Cholesterol 70 mg/dL (40-60); LDL Cholesterol,Calculated 141 mg/dL (0-99); Triglycerides 222 mg/dL (<150)
[2020-07-26 22:30] LABS: Hemoglobin A1C 5.8 % (4.0-6.0)
[2020-07-27] MEDS: ATORVASTATIN 10 MG TAB PO SCH (08:47)
[2020-07-27] MEDS: CYCLOBENZAPRINE 10 MG TAB PO SCH (08:47)
[2020-07-27] MEDS: BACITRACIN ZINC 500 UNIT/GM OINT 28.4 GM TUBE TOPICAL SCH (08:47)
[2020-07-27] MEDS: NICOTINE 14MG/24HR PATCH TRANSDERM SCH (08:48)
[2020-07-27] MEDS ORDERED: FLUoxetine HCL 20 MG CAP PO SCH (09:00)
--- NOTE | 2020-07-27 10:32 | P.DS ---
Providers Date of admission: 07/25/20 10:37 Expected date of discharge: 07/27/20 Attending physician: Rayshawn Calvin MD Consults: 07/25/20 10:48 Consult Physician Routine Consulting Provider: Ike Eldridge Consult Reason/Comments: H and P Do you want consulting provider notified?: Yes Primary care physician: Nando Gallagher - Discharge Diagnosis(es) (1) Major depressive disorder Current Visit: Yes Status: Acute (2) Alcohol use disorder Current Visit: Yes Status: Acute Hospital Course: Admission HPI: Patient is a 59-year-old female with significant history of osteoarthritis who was admitted for suicidal ideation with attempt by cutting her right wrist in the context of alcohol use. Patient presented to the hospital on 07/24/2020 brought in by her family to the emergency department after she cut her right wrist in the context of heavy alcohol use. The patient reports that she was drinking "shot of vodka here and there" in between tasks at home after work and then blanked out. Patient remembers telling her that "my son Filipe is mad at me" but does not recall cutting herself. Upon presentation to the emergency department, the patient's serum alcohol level was 279. In regards to mood, the patient is not endorsing any significant symptoms of depression at this time. She denies any hopelessness, helplessness, problems with sleep, bumps of appetite, or suicidal ideation, intention, and/or plan. She reports no homicidal ideation, intention, and/or plan. She expresses great regret and remorse for her actions. She has been. She diagnosed with depression and has been managed with Paxil since 2006. She reports that she became depressed after her son committed suicide in 2006. She endorses anhedonia since then. She also reports a prior attempt at suicide at age is 16 years old. She reported that up after a boyfriend cheated on her she overdosed on penicillin. Patient reports that her family has been very supportive and that they will be removing any alco hol inside the home. She denies any access to firearms or any weapons. She does not endorse any significant symptoms of bipolar disorder. She reports no flight of ideas, racing thoughts, or increased goal-directed behavior. She denies any history of psychosis. She reports no auditory or visual hallucinations. She denies any paranoia or delusions. In regards to substance use, the patient does report significant alcohol use. She would consume a quarter of a bottle of vodka 2-3 times per week as well as drink wine occasionally at bedtime. She denies any history of withdrawal symptoms. She reports no prior rehabilitation. She quit cigarettes 2 weeks ago in favor of a vape pen. She reported occasional marijuana use. She denies any other illicit drug use. Hospital course: Upon admission to the unit patient was initially tearful and remorseful. Patient was however directable and agreeable to commence treatment. Patient got along well with other patients on the unit and followed unit protocol. Patient was compliant with the medications and denied any side effects throughout hospital course. Patient was started on Prozac instead of her home medication of Paxil as the patient did endorse her forgetting to take the medication at times. Patient spoke of her stressors and engaged in therapy both group and individual. Patient was also seen by medical team for history and physical exam. Throughout the course of the hospitalization patient gradually improved with regards to depression, anxiety, sleep and became future oriented with improved insight and judgment. On the day of discharge patient denied any suicidal or homicidal ideations intent or plan denied any auditory or visual hallucinations. Patient endorsed wanting to live for her health and family. The patient denied any access to guns or weapons stating that her has locked away all the firearms and has even taken all the alcohol away from the house. Patient denied any paranoia and did not endorse any delusions. Patient does have a significant history of substance abuse however was counseled on abstaining from all substances including alcohol and marijuana. Patient was offered however declined inpatient substance-abuse rehab. Patient was also counseled on the medications and need for regular compliance and was encouraged to follow-up with their outpatient appointment for mental health and also for primary care. Prior to discharge a family meeting will be arranged by social media campaign manager to answer any questions and ensure safety upon discharge. Mental status exam: General Appearance: Patient appears to be stated age is alert, pleasant, and cooperative. Patient is in no acute distress and has fair hygiene and grooming Behavior: Patient is calmly seated without any agitated behavior. Speech: Patient's speech is fluent and nonpressured. Mood/Affect: Patient reports their mood is "doing okay", affect is congruent and euthymic. Suicidality/Homicidality: Patient denies having any suicidal or homicidal ideation intent or plan. Perceptions: Patient denies any auditory or visual hallucinations. Though content/process: There is no evidence of any delusional thought content and thought process is linear and goal-directed. more future oriented Memory and concentration: AOX3, grossly intact for the purposes of this session. Can spell "WORLD" backwards correctly. Judgment and insight: Improved with guarded prognosis Impression: Major depressive disorder, recurrent, severe Alcohol use disorder Plan: -Continue with discharge today as patient has improved and stabilized psychiat rically and is not currently an imminent threat to herself and/or others. Patient will remain at chronically elevated risk for harm to self and/or others due to her alcohol use and previous attempts at suicide. She does have significant support from her family and is future oriented. -Continue medications: Continue Prozac 20 mg by mouth daily for depression/anxiety. -Patient was counseled on the need for medication compliance and appropriate follow-up at mental health and also primary care for medical issues. Patient verbalized understanding and agreed. -Social work to arrange for and conduct family meeting to ensure safety upon discharge and answer any questions/concerns. Social work also to arrange for patients follow up appointments with her primary care physician for psychiatric care. -Patient counseled on abstaining from recreational drugs and marijuana and alcohol. Was informed/educated on the adverse effects on their physical and mental health. Patient verbally agreed and understood. Patient was offered substance abuse treatment however declined at this time. -Patient was instructed to return to the hospital or seek immediate medical care if their psychiatric or medical symptoms do worsen or reoccur. Vital Signs Temp 98.2 F 07/26/20 06:48 Pulse 98 07/26/20 15:55 Resp 16 07/26/20 06:48 BP 133/76 07/26/20 15:55 Pulse Ox 100 07/25/20 06:56 Laboratory Results WBC 7.9 k/uL (3.8-10.6) 07/26/20 11:30 RBC 5.20 m/uL (3.80-5.40) 07/26/20 11:30 Hgb 15.9 gm/dL (11.4-16.0) 07/26/20 11:30 Hct 49.3 % (34.0-46.0) H 07/26/20 11:30 MCV 94.7 fL (80.0-100.0) 07/26/20 11:30 MCH 30.6 pg (25.0-35.0) 07/26/20 11:30 MCHC 32.4 g/dL (31.0-37.0) 07/26/20 11:30 RDW 13.2 % (11.5-15.5) 07/26/20 11:30 Plt Count 331 k/uL (150-450) 07/26/20 11:30 Neutrophils % 76 % 07/26/20 11:30 Lymphocytes % 16 % 07/26/20 11:30 Monocytes % 6 % 07/26/20 11:30 Eosinophils % 1 % 07/26/20 11: Basophils % 1 % 07/26/20 11:30 Neutrophils # 5.9 k/uL (1.3-7.7) 07/26/20 11:30 Lymphocytes # 1.2 k/uL (1.0-4.8) 07/26/20 11:30 Monocytes # 0.5 k/uL (0-1.0) 07/26/20 11:30 Eosinophils # 0.1 k/uL (0-0.7) 07/26/20 11:30 Basophils # 0.1 k/uL (0-0.2) 07/26/20 11:30 Sodium 137 mmol/L (137-145) 07/26/20 11:30 Potassium 4.9 mmol/L (3.5-5.1) 07/26/20 11:30 Chloride 103 mmol/L (98-107) 07/26/20 11:30 Carbon Dioxide 29 mmol/L (22-30) 07/26/20 11:30 Anion Gap 5 mmol/L 07/26/20 11:30 BUN 14 mg/dL (7-17) 07/26/20 11:30 Creatinine 0.71 mg/dL (0.52-1.04) 07/26/20 11:30 Est GFR (CKD-EPI)AfAm >90 (>60 ml/min/1.73 sqM) 07/26/20 11:30 Est GFR (CKD-EPI)NonAf >90 (>60 ml/min/1.73 sqM) 07/26/20 11:30 Glucose 99 mg/dL (74-99) 07/26/20 11:[address] Glu mg/dL 120 07/26/20 11:30 Hemoglobin A1c 5.8 % (4.0-6.0) 07/26/20 11:30 Calcium 10.5 mg/dL (8.4-10.2) H 07/26/20 11:30 Total Bilirubin 1.0 mg/dL (0.2-1.3) 07/26/20 11:30 AST 37 U/L (14-36) H 07/26/20 11:30 ALT 37 U/L (4-34) H 07/26/20 11:30 Alkaline Phosphatase 83 U/L (38-126) 07/26/20 11:30 Ammonia 20 umol/L (<30) 07/24/20 20:01 Total Protein 7.4 g/dL (6.3-8.2) 07/26/20 11:30 Albumin 4.4 g/dL (3.5-5.0) 07/26/20 11:30 Triglycerides 222 mg/dL (<150) H 07/26/20 11:30 Cholesterol 255 mg/dL (<200) H 07/26/20 11:30 LDL Cholesterol, Calc 141 mg/dL (0-99) H 07/26/20 11:30 HDL Cholesterol 70 mg/dL (40-60) H 07/26/20 11:30 TSH 0.714 mIU/L (0.465-4.680) 07/26/20 11:30 Urine Color Yellow 07/25/20 07:45 Urine Appearance Clear (Clear) 07/25/20 07:45 Urine pH 5.5 (5.0-8.0) 07/25/20 07:45 Ur Specific [place] 1.015 (1.001-1.035) 07/25/20 07:45 Urine Protein Negative (Negative) 07/25/20 07:45 Urine Glucose (UA) Negative (Negative) 07/25/20 07:45 Urine Ketones Negative (Negative) 07/25/20 07:45 Urine Blood Negative (Negative) 07/25/20 07:45 Urine Nitrite Negative (Negative) 07/25/20 07:45 Urine Bilirubin Negative (Negative) 07/25/20 07:45 Urine Urobilinogen <2.0 mg/dL (<2.0) 07/25/20 07:45 Ur Leukocyte Esterase Negative (Negative) 07/25/20 07:45 Salicylates <1.0 mg/dL 07/24/20 20:01 Urine Opiates Screen Not Detected (NotDetected) 07/25/20 07:45 Ur Oxycodone Screen Not Detected (NotDetected) 07/25/20 07:45 Urine Methadone Screen Not Detected (NotDetected) 07/25/20 07:45 Ur Propoxyphene Screen Not Detected (NotDetected) 07/25/20 07:45 Acetaminophen <10.0 ug/mL 07/24/20 20:01 Ur Barbiturates Screen Not Detected (NotDetected) 07/25/20 07:45 U Tricyclic Antidepress Detected (NotDetected) H 07/25/20 07:45 Ur Phencyclidine Scrn Not Detected (NotDetected) 07/25/20 07:45 Ur Amphetamines Screen Not Detected (NotDetected) 07/25/20 07:45 U Methamphetamines Scrn Not Detected (NotDetected) 07/25/20 07:45 U Benzodiazepines Scrn Not Detected (NotDetected) 07/25/20 07:45 Urine Cocaine Screen Not Detected (NotDetected) 07/25/20 07:45 U Marijuana (THC) Screen Detected (NotDetected) H 07/25/20 07:45 Serum Alcohol 279 mg/dL H* 07/24/20 20:01 Allergies Allergy/AdvReac Type Severity Reaction Status Date / Time naproxen [From Aleve] Allergy Anaphylaxis Verified 07/24/20 23:09 phenazopyridine Allergy Rash/Hives Verified 07/24/20 23:09 [From Pyridium] Patient Condition at Discharge: Stable Plan - Discharge Summary Discharge Rx Participant: Yes New Discharge Prescriptions: New Bacitracin Zinc Oint 1 applic TOPICAL BID 14 Days applic Nicotine 14Mg/24Hr Patch [Habitrol] 1 patch TRANSDERM DAILY 30 Days patch FLUoxetine HCL [PROzac] 20 mg PO DAILY 30 Days cap Continue Cyclobenzaprine [Flexeril] 10 mg PO DAILY 14 Days tab Atorvastatin [Lipitor] 10 mg PO DAILY 14 Days tab Discontinued PARoxetine HCL [Paxil] 20 mg PO DAILY Discharge Medication List Atorvastatin [Lipitor] 10 mg PO DAILY 14 Days tab 07/27/20 [Rx] Bacitracin Zinc Oint 1 applic TOPICAL BID 14 Days applic 07/27/20 [Rx] Cyclobenzaprine [Flexeril] 10 mg PO DAILY 14 Days tab 07/27/20 [Rx] FLUoxetine HCL [PROzac] 20 mg PO DAILY 30 Days cap 07/27/20 [Rx] Nicotine 14Mg/24Hr Patch [Habitrol] 1 patch TRANSDERM DAILY 30 Days patch 07/27/20 [Rx] Follow up Appointment(s)/Referral(s): Nando Gallagher MD [Primary Care Provider] - 1-2 days Activity/Diet/Wound Care/Special Instructions: Activity and diet as tolerated. Avoid the use of street drugs and alcohol. Take all medications as prescribed. When you are in need of refills on your medications please contact your medical provider and/or outpatient psychiatrist to have this done. Please go to scheduled outpatient appointment for aftercare treatment. If symptoms return or become worse, call the crisis line at and/or go to the nearest emergency room for evaluation. Discharge Disposition: HOME SELF-CARE
[2020-07-27 11:00] VITALS: BP 125/81; PULSE 84; RESP 20; TEMP 98.1
== END 2020-07-27 12:06 | disposition home or self-care (01) | DRG 885 ==
LOC: EC 19:36 → 3MHU 07-25 10:37
PROVIDERS: ADMIT Psychiatry & Neurology Psychiatry; ATTEND Psychiatry & Neurology Psychiatry
PROC: 0HQDXZZ Repair Right Lower Arm Skin, External Approach (ICD-10-PCS; principal; 2020-07-24)
DX: F33.2 Major depressive disorder, recurrent severe without psychotic features (principal); R45.851 Suicidal ideations; M19.90 Unspecified osteoarthritis, unspecified site; S61.511A Laceration without foreign body of right wrist, initial encounter; F41.9 Anxiety disorder, unspecified; F12.90 Cannabis use, unspecified, uncomplicated; F10.129 Alcohol abuse with intoxication, unspecified; F17.210 Nicotine dependence, cigarettes, uncomplicated; J44.9 Chronic obstructive pulmonary disease, unspecified; E66.9 Obesity, unspecified; E78.5 Hyperlipidemia, unspecified; M62.838 Other muscle spasm; Y90.8 Blood alcohol level of 240 mg/100 ml or more; Z98.1 Arthrodesis status; Z79.899 Other long term (current) drug therapy; Z88.8 Allergy status to other drugs, medicaments and biological substances; Z87.442 Personal history of urinary calculi; Z98.51 Tubal ligation status; Z98.890 Other specified postprocedural states; Z68.38 Body mass index [BMI] 38.0-38.9, adult
CPT/HCPCS: 36415; 80053; 80061; 80306; 80320; 80329; 81003; 82075; 82140; 83036; 83520; 84443; 85025; 90715

== ENCOUNTER → 2021-09-25 | Outpatient (CLI) | payer BC ==
[2021-09-25 11:35] LABS: Basophils % (A) 0 %; Eosinophils % (A) 1 %; HCT 45.1 % (34.0-46.0); Lymphocytes # (A) 1.4 k/uL (1.0-4.8); Lymphocytes % (A) 16 %; MCH 32.5 pg (25.0-35.0); MCHC 33.2 g/dL (31.0-37.0); MCV 97.9 fL (80.0-100.0); Mean Platelet Volume 7.9; Monocytes # (A) 0.4 k/uL (0-1.0); Monocytes % (A) 4 %; Neutrophils # (A) 6.7 k/uL (1.3-7.7); Neutrophils % (A) 78 %; Platelet Count 289 k/uL (150-450); RBC 4.61 m/uL (3.80-5.40); RDW 13.2 % (11.5-15.5); WBC 8.6 k/uL (3.8-10.6)
[2021-09-25 11:51] LABS: ALT 53 U/L (4-34); African American GFR (CKD) >90 (>60 ml/min/1.73 sqM); Albumin 4.3 g/dL (3.5-5.0); Amylase 35 U/L (30-110); Anion Gap 11 mmol/L; Blood Urea Nitrogen 16 mg/dL (7-17); Calcium 9.7 mg/dL (8.4-10.2); Carbon Dioxide 24 mmol/L (22-30); Chloride 101 mmol/L (98-107); Glucose 121 mg/dL (74-99); Lipase 87 U/L (23-300); Non-African American GFR(CKD) >90 (>60 ml/min/1.73 sqM); Sodium 136 mmol/L (137-145); Total Protein 7.4 g/dL (6.3-8.2)
[2021-09-25 11:57] LABS: AST 43 U/L (14-36); Alkaline Phosphatase 64 U/L (38-126); Potassium 4.6 mmol/L (3.5-5.1)
--- NOTE | 2021-09-25 12:02 | CT ---
EXAMINATION TYPE: CT angio abdomen DATE OF EXAM: 09/25/2021 11:38 AM COMPARISON: None HISTORY: Mid abdominal pain x [address] DLP: 1527 mGycm Automated exposure control for dose reduction was used. TECHNIQUE: Performed without and with IV Contrast, patient injected with 100 mL of Isovue 370. . FINDINGS: Lung bases are clear. There is marked low attenuation of the liver suggestive of fatty infiltration. 1 cm hypodensity in the left lobe of the liver. There is inflammatory change right upper quadrant around the duodenum or correlate for duodenal infla mmation or peptic ulcer disease. Pancreatitis felt less likely but correlation clinically recommended . Small amount of free fluid right paracolic gutter. Appendix not included in the [id number]. The kidneys are symmetric in size with no obvious hydronephrosis. Adrenal glands have a normal morpho logy. Aorta of normal caliber. Hypertrophic and degenerative change of the spine. Sclerosis likely is discogenic involving the L1-L2 levels. IMPRESSION: 1. There is inflammation in the right abdomen with wall thickening of the duodenum and distal stomach correlate for peptic ulcer disease or gastroduodenitis. Recommend correlation with pancreatic enzyme s to exclude pancreatitis which is felt less likely. Report called to referring clinician 11:55 AM . 2. Aorta of normal caliber 3. Hepatic steatosis with a localized area of additional low attenuation measuring 1 cm left lobe of the liver too small to characterize.
== END | disposition home or self-care (01) ==
LOC: RADCTMAIN 10:25
PROVIDERS: ATTEND Family Medicine
DX: K76.0 Fatty (change of) liver, not elsewhere classified (principal); R10.9 Unspecified abdominal pain
CPT/HCPCS: 80053; 82150; 83690; 85025; 74175; 36415; Q9967

== ENCOUNTER → 2021-10-24 | Outpatient (CLI) | payer BC ==
--- NOTE | 2021-10-25 10:43 | ECHOF ---
Referral Reason:R07.9 Chest pain MEASUREMENTS -------- HEIGHT: 157.5 cm WEIGHT: 90.7 kg BP: RVIDd: 2.8 cm (< 3.3) IVSd: 1.1 cm (0.6 - 1.1) LVIDd: 4.4 cm (3.9 - 5.3) LVPWd: 1.0 cm (0.6 - 1.1) IVSs: 1.5 cm LVIDs: 3.1 cm LVPWs: 1.2 cm LA Diam: 3.3 cm (2.7 - 3.8) Ao Diam: 2.9 cm (2.0 - 3.7) AV Cusp: 1.8 cm (1.5 - 2.6) LA Diam: 3.6 cm (2.7 - 3.8) MV EXCURSION: 16.312 mm (> 18.000) MV EF SLOPE: 60 mm/s (70 - 150) EPSS: 0.5 cm MV E Lorenzo: 0.83 m/s MV DecT: 270 ms MV A Lorenzo: 0.88 m/s MV E/A Ratio: 0.94 RAP: 5.00 mmHg RVSP: 12.14 mmHg FINDINGS -------- Sinus rhythm. This was a technically good study. LV size, wall thickness and systolic function are normal, with an EF greater than 55%. The left ronal tricular size is normal. The right ventricle is normal in size. Normal LA size by volume 22+/-6 ml/m2. The right atrial size is normal. There is mild aortic valve sclerosis. There is no evidence of aortic regurgitation. Mild mitral regurgitation is present. Mild tricuspid regurgitation present. Right ventricular systolic pressure is normal at < 35 mmHg. There is no pulmonic regurgitation present. Echo free space represents a pericardial fat pad. CONCLUSIONS -------- 1. LV size, wall thickness and systolic function are normal, with an EF greater than 55%. 2. The left ventricular size is normal. 3. The right ventricle is normal in size. 4. Normal LA size by volume 22+/-6 ml/m2. 5. The right atrial size is normal. 6. There is mild aortic valve sclerosis. 7. Mild mitral regurgitation is present. 8. Mild tricuspid regurgitation present. 9. There is no pulmonic regurgitation present. 10. Echo free space represents a pericardial fat pad. LAUNDRY WORKER: Rajwinder Kumar RDCS
== END | disposition home or self-care (01) ==
LOC: RADECHMAIN 16:19
PROVIDERS: ATTEND Family Medicine
DX: R07.9 Chest pain, unspecified (principal); I35.8 Other nonrheumatic aortic valve disorders; I34.0 Nonrheumatic mitral (valve) insufficiency; I07.1 Rheumatic tricuspid insufficiency
CPT/HCPCS: 93306

== ENCOUNTER → 2021-11-04 | Outpatient (CLI) | payer BC ==
[~2021-11-04] MED LIST changes: -DEXAMETHASONE SOD PHOSPHATE 10 MG/ML 1 ML VIAL IV ONE; +DOBUTamine DRIP for NUC MED 500 MG in DEXTROSE/WATER 1 250ML.BAG IV PRN; +DOBUTamine DRIP for NUC MED 500 MG/250 ML BAG IV ONE; -HYDROmorphone 0.5 MG/0.5 ML SYRINGE IVP PRN; -LACTATED RINGERS 1,000 ML IV SCH; -LIDOCAINE 1% 20 ML VIAL (10MG/ML) FOR IV START INTRADERMA PRN; -ONDANSETRON 4 MG/2 ML VIAL IVP ONE; -ceFAZolin IN SWFI 2 GM/20 ML SYRINGE IVP ONE
--- NOTE | 2021-11-04 16:22 | ECHOS ---
STRESS ECHOCARDIOGRAM DOBUTAMINE STRESS ECHOCARDIOGRAM: INDICATIONS: Chest pain. BASELINE HEART RATE: 82 BASELINE BLOOD PRESSURE: 111/85 MAXIMUM HEART RATE: 134 MAXIMUM BLOOD PRESSURE: 206/87 85% MPHR: 134 100% MPHR: 158 METS: NA MAXIMUM STAGE REACHED: 3 TOTAL EXERCISE TIME: CLINICAL INFORMATION: Baseline EKG shows sinus rhythm, normal axis, normal intervals. Patient was given intravenous dobutamine over a period of 8 minutes as per protocol, achieving 85% of predicted maximal heart rate without chest pain or diagnostic ST-segment depression. Baseline echo shows normal left ventricular size, wall motion, systolic function. Post dobutamine infusion there is normal hyperdynamic response of all segments of myocardium noted. CONCLUSIONS: 1. Negative stress test by EKG criteria. 2. Negative dobutamine stress echo. MMODL / IJN: [id number] /
== END | disposition home or self-care (01) ==
LOC: RADNMMAIN 09:14
PROVIDERS: ATTEND Family Medicine
DX: R07.9 Chest pain, unspecified (principal)
CPT/HCPCS: 93351

== ENCOUNTER → 2021-12-12 | Outpatient (CLI) | payer BC ==
--- NOTE | 2021-12-12 15:24 | CT ---
EXAMINATION TYPE: CT angio chest DATE OF EXAM: 12/12/2021 COMPARISON: No previous CT scan is available for comparison HISTORY: SOB CT DLP: 577 mGy.cm. Automated Exposure Control for Dose Reduction was Utilized. TECHNIQUE AND CONTRAST: CTA scan of the thorax is performed with IV Contrast, patient injected with 70ML mL of Isovue 370, pu lmonary angiogram protocol. MIP Images are created on CT scanner and reviewed. FINDINGS: Tiny filling defect is seen within the left lower lobe posterior segmental artery which could represe nt an artifact or a tiny nonocclusive thrombus. No definite filling defect is seen within the pulmona ry trunk, main pulmonary arteries, lobar, segmental and proximal subsegmental arteries. Distal subseg mental arteries are suboptimally assessed. The pulmonary trunk measures up to 2.5 cm. The ascending a cathryn measures up to 3.8 cm. Slightly dilated left atrium. No gross cardiomegaly otherwise. Questionable 4 mm nodule in the right thyroid lobe. No pathologically enlarged lymph nodes in the [address]. Right lung apex nodules measuring up to 3 mm (image #31, series 11). No follow-up is required for these nodules if low risk patient. If high risk patient, optional follow-up CT scan in 12 months can be considered. Mild wall thickening of the medium and small size bronchi. Unremarkable lungs otherwise. Patent trachea and main bronchi. No pleural or pericardial effusion. Erickson spected hepatic steatosis. 12 mm segment 4 hepatic hypodensity, possibly representing a hepatic cyst yet suboptimally assessed. Further elective ultrasound assessment can be considered. Anterior lower c ervical fixation. No aggressive bone lesion. IMPRESSION: The described filling defect in the left lower lobe posterior segmental pulmonary artery could repres ent an artifact or a tiny nonocclusive embolus, otherwise no evidence of pulmonary embolism. No defin ite acute pulmonary abnormality identified. Incidental findings and recommendations as described mikael whipple
== END | disposition home or self-care (01) ==
LOC: RADCTMAIN 14:26
PROVIDERS: ATTEND Family Medicine
DX: I28.8 Other diseases of pulmonary vessels (principal)
CPT/HCPCS: 71275; Q9967

== ENCOUNTER → 2021-12-18 | Outpatient (CLI) | payer OTHER ==
--- NOTE | 2021-12-18 09:44 | XR ---
EXAMINATION TYPE: XR shoulder complete RT DATE OF EXAM: 12/18/2021 COMPARISON: NONE HISTORY: Pain TECHNIQUE: Three views are submitted. FINDINGS: The osseous structures are intact. There is no acute fracture or dislocation. Postsurgical change in volving the humeral head. 2 cc joint arthropathy and spur along the lower margin of the humerus. Arlen t calcification along the upper margin of the humeral head can be associated with calcific tendinosis . IMPRESSION: 1. Postsurgical change. 2. AC joint arthropathy correlate for impingement. 3. Small spur involving the inferior humeral head.
== END | disposition home or self-care (01) ==
LOC: RADXRMAIN 09:22
PROVIDERS: ATTEND Emergency Medicine
DX: S46.011A Strain of muscle(s) and tendon(s) of the rotator cuff of right shoulder, initial encounter (principal); X58.XXXA Exposure to other specified factors, initial encounter

== ENCOUNTER → 2021-12-25 | Outpatient (CLI) | payer BC ==
--- NOTE | 2021-12-25 16:16 | US ---
EXAMINATION TYPE: US thyroid st tissue head/neck DATE OF EXAM: 12/25/2021 COMPARISON: NONE CLINICAL HISTORY: E04.1 SINGLE THYROID NODULE. abn CT, not on meds, no h/o thyroid issues GLAND SIZE: Right Lobe: 4.2 x 1.4 x 1.9 cm Overall Parenchyma: homogenous Left Lobe: 5.0 x 1.1 x 1.6 cm Overall Parenchyma: homogeneous Isthmus Thickness: 0.3 cm NODULES RIGHT: # of nodules measured on right: 1 1. 0.5 X 0.6 x 0.5 cm, mid , cystic or almost completely cystic, anechoic nodule, which is wider th an tall, with smooth margins, without echogenic foci. TR 1 Prior size: BIOINFORMATICIST LEFT: # of nodules measured on left: 1 1. 0.5 X 0.4 x 0.3 cm, mid, cystic or almost completely cystic, anechoic nodule, which is wider gagan n tall, with smooth margins, without echogenic foci. Prior size: BIOINFORMATICIST ISTHMUS: # of nodules measured in the isthmus: 0 Bilateral neck scanned, no evidence of lymphadenopathy. IMPRESSION: Benign findings thyroid ultrasound. 2017 ACR TI-RADS LEVEL: *Highest TI-RADS level nodule reported
== END | disposition home or self-care (01) ==
LOC: RADUSWWP 12:40
PROVIDERS: ATTEND Family Medicine
DX: E04.1 Nontoxic single thyroid nodule (principal)
CPT/HCPCS: 76536

== ENCOUNTER → 2022-01-03 | Outpatient (CLI) | payer BC ==
[2022-01-03 23:09] LABS: T4, Free (Free Thyroxine) 1.12 ng/dL (0.800-1.800)
[2022-01-03 23:12] LABS: Thyroid Peroxidase Antibodies <9.0 U/mL (0.0-33.0)
[2022-01-03 23:53] LABS: Insulin Level 7.7 mIU/mL (3.0-25.0)
[2022-01-04 08:18] LABS: ACTH 6.94 pg/mL (0.00-45.99)
== END | disposition home or self-care (01) ==
LOC: LABWHC1 14:51
PROVIDERS: ATTEND Nurse Practitioner Adult Health
DX: R61 Generalized hyperhidrosis (principal); E04.1 Nontoxic single thyroid nodule
CPT/HCPCS: 36415; 82024; 82533; 83525; 83835; 84439; 84443; 86316; 86376; 86800

== ENCOUNTER → 2023-05-29 | Outpatient (CLI) | payer BC ==
--- NOTE | 2023-06-01 11:39 | MM ---
Reason for Exam: Screening (asymptomatic). Last mammogram was performed 3 year(s) and 1 month(s) ago. Patient History: Menarche at age 14. First Full-Term at age 17. Postmenopausal. Hormonal Contraceptives, from age 17 until age 29. Risk Values: Maty 5 year model risk: 1.0%. NCI Lifetime model risk: 4.4%. Prior Study Comparison: 09/25/2006 Bilateral Screening Mammogram, [facility]. 02/09/2018 Bilateral Screening Mammogram, [facility]. 04/24/2020 Bilateral Screening Mammogram, [facility]. Tissue Density: The breast tissue is heterogeneously dense. This may lower the sensitivity of mammography. Findings: Analyzed By CAD. There is no suspicious group of microcalcifications or new suspicious mass in either breast. Overall Assessment: Benign, BI-RAD 2 Management: Screening Mammogram of both breasts in 1 year. . Patient should continue monthly self-breast exams. A clinical breast exam by your physician is recommended on an annual basis. This exam should not preclude additional follow-up of suspicious palpable abnormalities. Note on Maty scores and lifetime risk: 1. A Maty score greater than 3% is considered moderate risk. If this is the case, consider specialist referral to assess eligibility for a risk reducing agent. 2. If overall lifetime risk for the development of breast cancer is 20% or higher, the patient may qualify for future screening with alternating mammogram and breast MRI. Electronically signed and approved by: Pj Madrigal M.D. Radiologis
== END | disposition home or self-care (01) ==
LOC: RADMAMWWP 15:17
PROVIDERS: ATTEND Family Medicine
DX: Z12.31 Encounter for screening mammogram for malignant neoplasm of breast (principal); Z78.0 Asymptomatic menopausal state
CPT/HCPCS: 77063; 77067

== ENCOUNTER → 2023-10-08 | Outpatient (CLI) | payer BC ==
--- NOTE | 2023-10-09 08:20 | CTL ---
EXAMINATION TYPE: CT Low Dose Lung DATE OF EXAM ORDERED: 10/08/2023 HISTORY: Long-term tobacco use. Lung cancer screening CT DLP: 124.[address] CTDI: 4.0 mGy Automated exposure control for dose reduction was used. SCREENING VISIT: Baseline COMPARISON: None TECHNIQUE: Low dose computed tomography scan was performed through the chest at 1 mm thick sections a nd reconstructed images in multiple planes at 1 mm and [address] DIAGNOSTIC QUALITY: Satisfactory FINDINGS: LUNG NODULES: Present, detailed below: Some scattered tiny nodules. For reference is a 3 mm superior left lower lobe nodule axial image 59. No greater than 5 mm pulmonary nodules. LUNGS: COPD: Severity: None Fibrosis: Severity: Mild Bibasilar Lymph nodes: None Other findings: None RIGHT PLEURAL SPACE: Effusion: None Calcification: None Thickening: None Pneumothorax: None LEFT PLEURAL SPACE: Effusion: None Calcification: None Thickening: None Pneumothorax: None HEART: Heart Size: Normal Coronary Calcification: None Pericardial Effusion: None OTHER FINDINGS: Upper abdomen: Visualized portion of liver is diffusely low dense consistent with fatty infiltrative hepatocellular disease Bony thorax: Dextroconvex scoliosis centered in the midthoracic spine is present. Supraclavicular region: None Other: None IMPRESSION: No significant pulmonary nodules. CT LUNG RAD AND CT CHEST RECOMMENDATION: Lung-Rad 2 Benign Appearance or Behavior: Continue annual sc reening with LDCT in 12 months. S Modifier (other clinically significant findings): None
== END | disposition home or self-care (01) ==
LOC: RADCTMAIN 08:57
PROVIDERS: ATTEND Family Medicine
DX: Z12.2 Encounter for screening for malignant neoplasm of respiratory organs (principal); Z87.891 Personal history of nicotine dependence
CPT/HCPCS: 71271

== ENCOUNTER → 2024-02-23 | Outpatient (CLI) | payer BC ==
--- NOTE | 2024-02-23 21:01 | US ---
EXAMINATION TYPE: US carotid duplex BILAT DATE OF EXAM: 02/23/2024 COMPARISON: NONE CLINICAL INDICATION: Female, 63 years old with history of R42 DIZZINESS AND GIDDINESS; TECHNIQUE: Carotid duplex ultrasound examination. Indirect Doppler criteria was utilized. FINDINGS: EXAM MEASUREMENTS: RIGHT: Peak Systolic Velocity (PSV) cm/sec ----- Right CCA: 68.4 ----- Right ICA: 87.4 ----- Right ECA: 59.8 ICA/CCA ratio: 1.3 RIGHT: End Diastole cm/sec ----- Right CCA: 22.2 ----- Right ICA: 39.7 ----- Right ECA: 6.7 LEFT: Peak Systolic Velocity (PSV) cm/sec ----- Left CCA: 64.5 ----- Left ICA: 96.2 ----- Left ECA: 68.9 ICA/CCA ratio: 1.5 LEFT: End Diastole cm/sec ----- Left CCA: 16.3 ----- Left ICA: 46.0 ----- Left ECA: 7.0 VERTEBRALS (direction of flow): Right Vertebral: Antegrade Left Vertebral: Antegrade Rhythm: Arrhythmia No significant stenosis IMPRESSION: Less than 50% stenosis of the bilateral carotid bifurcations. Criteria for Assigning % of Stenosis / Diameter reduction (Estimation based on the indirect measurements of the internal carotid artery velocities (ICA PSV). 1. Normal (no stenosis)=ICA PSV < 125 cm/s: ratio < 2.0: ICA EDV<40 cm/s. 2. Less than 50% stenosis=ICA PSV < 125 cm/s: ratio < 2.0: ICA EDV<40 cm/s. 3. 50 to 69% stenosis=ICA PSV of 125 to 230 cm/s: ration 2.0 ? 4.0: ICA EDV 40-100 cm/s. 4. Greater than 70% stenosis to near occlusion= ICA PSV > 230 cm/s: ratio > 4.0: ICA EDV > 100 cm/s. 5. Near occlusion= ICA PSV velocities may be low or undetectable: variable ratio and ICA EDV. 6. Total occlusion=unable to detect flow.
--- NOTE | 2024-02-23 22:18 | CT ---
EXAMINATION TYPE: CT brain wo con CT DLP: 1144.7 mGycm, Automated exposure control for dose reduction was used. DATE OF EXAM: 02/23/2024 3:31 PM COMPARISON: None. CLINICAL INDICATION:Female, 63 years old with history of R42 DIZZINESS AND GIDDINESS R41.3 OTHER AMNE ELIUD, Patient states that she has had a change in memory, vision, and balance. TECHNIQUE: Brain: Axial CT images of the brain were obtained with coronal and sagittal reformats created and rev iewed. Contrast used: None. Oral contrast used: None. FINDINGS: Brain: Extra-axial spaces: No abnormal extra-axial fluid collections. Ventricular system: Within normal limits Cerebral parenchyma: No acute intraparenchymal hemorrhage or mass effect. The vigil-white junction is well differentiated. Scattered hypoattenuating areas are seen within the white matter. Suspected pe rivascular space versus remote lacunar injury involving the right external capsule. Cerebellum: Unremarkable. Mass effect: No evidence of midline shift. Intracranial vasculature: unremarkable Soft tissues: Normal. Calvarium/osseous structures: No depressed skull fracture. Paranasal sinuses and mastoid air cells: Mild scattered paranasal sinus disease. Visualized orbits: Orbital contents are intact. IMPRESSION: 1. No acute intracranial process. 2. Nonspecific white matter changes, likely secondary to chronic small vessel ischemic disease.
== END | disposition home or self-care (01) ==
LOC: RADUSWWP 14:12
PROVIDERS: ATTEND Family Medicine
DX: R90.82 White matter disease, unspecified (principal); R42 Dizziness and giddiness; R41.3 Other amnesia
CPT/HCPCS: 70450; 93880

== ENCOUNTER → 2024-04-15 | Outpatient (CLI) | payer BC ==
--- NOTE | 2024-04-15 10:12 | US ---
EXAMINATION TYPE: US venous doppler duplex LE RT DATE OF EXAM: 04/15/2024 9:48 AM COMPARISON: NONE CLINICAL INDICATION: Female, 63 years old with history of I80.9 PHLEBITIS AND THROMBOPHLEBITIS OF UNS PECIFIE; swelling x few weeks per patient. No redness. No injury. SIDE PERFORMED: Right TECHNIQUE: The lower extremity deep venous system is examined utilizing real time linear array sonog sarah with graded compression, doppler sonography and color-flow sonography. VESSELS IMAGED: Common Femoral Vein Deep Femoral Vein Greater Saphenous Vein * Femoral Vein Popliteal Vein Small Saphenous Vein * Proximal Calf Veins (* superficial vessels) Right Leg: Negative for DVT IMPRESSION: Grayscale, color doppler, spectral doppler imaging performed of the deep veins of the lo wer extremities. There is normal flow, compressibility, vascular waveforms.
== END | disposition home or self-care (01) ==
LOC: RADUSWWP 09:27
PROVIDERS: ATTEND Orthopaedic Surgery
DX: I80.9 Phlebitis and thrombophlebitis of unspecified site (principal); M17.11 Unilateral primary osteoarthritis, right knee; S43.411D Sprain of right coracohumeral (ligament), subsequent encounter; S83.521D Sprain of posterior cruciate ligament of right knee, subsequent encounter; S72.434D Nondisplaced fracture of medial condyle of right femur, subsequent encounter for closed fracture with routine healing; Z68.41 Body mass index [BMI] 40.0-44.9, adult

== ENCOUNTER → 2024-06-27 | Outpatient (CLI) | payer BC ==
--- NOTE | 2024-06-28 10:56 | CA ---
Transthoracic Echo Report Name: Marilynn Alberts Age: 63 Gender: F : 1960 Exam Date: 06/27/2024 14:07 Exam Location: [facility] Ht (in): 62 Wt (lb): 226 Ordering Physician: Nando Gallagher MD Attending/Referring Phys: Aileen STEIN Green Feed Attendant Farzaneh Magallon, ANITA Procedure CPT: Indications: R60.0 LOCALIZED EDEMA Cardiac Hx: Technical Quality: Fair Contrast 1: Total Dose (mL): Contrast 2: Total Dose (mL): MEASUREMENTS (Male / Female) Normal Values 2D ECHO LV Diastolic Diameter PLAX 4.0 cm 4.2 - 5.9 / 3.9 - 5.3 cm LV Systolic Diameter PLAX 2.8 cm IVS Diastolic Thickness 0.9 cm 0.6 - 1.0 / 0.6 - 0.9 cm LVPW Diastolic Thickness 1.0 cm 0.6 - 1.0 / 0.6 - 0.9 cm LV Relative Wall Thickness 0.5 M-MODE Aortic Root Diameter MM 2.7 cm LA Systolic Diameter MM 4.0 cm LA Ao Ratio MM 1.5 AV Cusp Separation MM 0.0 cm DOPPLER AV Peak Velocity 122.9 cm/s AV Peak Gradient 6.0 mmHg AV Mean Velocity 65.9 cm/s AV Mean Gradient 2.1 mmHg AV Velocity Time Integral 17.3 cm LVOT Peak Velocity 106.6 cm/s LVOT Peak Gradient 4.5 mmHg LVOT Velocity Time Integral 23.3 cm Mitral E Point Velocity 75.0 cm/s Mitral A Point Velocity 96.2 cm/s Mitral E to A Ratio 0.8 MV Deceleration Time 358.0 ms MV E' Velocity 6.1 cm/s Mitral E to MV E' Ratio 12.3 FINDINGS Left Ventricle Mildly increased left ventricular wall thickness. Left ventricular cavity size normal. Normal left ventricular systolic function with no obvious regional wall motion abnormalities. Left ventricular ejection fraction is estimated at 55-60 %. Grade 1 diastolic dysfunction. Right Ventricle Normal right ventricular size and function. Right Atrium Normal right atrial size. Left Atrium Normal left atrial size. Mitral Valve Structurally normal mitral valve. No mitral stenosis, regurgitation or prolapse. Aortic Valve Trileaflet aortic valve. No aortic valve stenosis or regurgitation. Tricuspid Valve Structurally normal tricuspid valve. Pulmonic Valve Structurally normal pulmonic valve. Pericardium No pericardial effusion. Aorta Normal size aortic root and proximal ascending aorta. CONCLUSIONS Normal biventricular systolic function No significant valvular abnormalities No pericardial effusion Previewed by: Dr. Andrew Roach MD (Electronically Signed) Final Date: 28 June 2024 10:56
== END | disposition home or self-care (01) ==
LOC: RADECHMAIN 13:43
PROVIDERS: ATTEND Family Medicine
DX: R60.0 Localized edema (principal)
CPT/HCPCS: 93306

== ENCOUNTER → 2024-06-27 | Outpatient (CLI) | payer BC ==
--- NOTE | 2024-06-27 19:46 | CT ---
EXAMINATION TYPE: CT angio abd aorta w/Runoff CT DLP: 2571.6 mGycm, Automated exposure control for dose reduction was used. DATE OF EXAM: 06/27/2024 4:30 PM COMPARISON:CTA abdomen 09/25/2021, right lower extremity venous ultrasound 04/15/2024. CLINICAL INDICATION:Female, 63 years old with history of R22.41 LOCALIZED SWELLING, MASS AND LUMP, RI GHT LO; Right lower extremity pain and swelling x 2 months TECHNIQUE: Multiple thin slice sub-millimeter images were obtained before and after administration of contrast involving the abdomen, pelvis, and lower extremities. Patient was given Isovue 370, 100 cc intravenously. 3-D reconstructed images and maximum intensity projection images were obtained of the abdomen, pelvis, and lower extremities. FINDINGS: CTA Abdomen and pelvis: The abdominal aorta does not demonstrate aneurysmal dilatation. Minimal athe rosclerotic plaquing is identified within the abdominal aorta. No evidence for intramural hematoma or dissection. The origins of the superior mesenteric artery, renal arteries, inferior mesenteric arter y, and celiac axis are patent. Small calcification at the origin of the left renal artery. The iliac vessels are normal in morphology. Atherosclerotic plaquing with some mural thrombus formation is manuel ntified in the common iliac arteries. CTA Lower extremities: Right: The common femoral and superficial femoral arteries are patent. The popliteal artery is patent . Anterior and posterior tibial arteries as well as the peroneal artery are patent. Anterior and post erior tibial arteries cross the ankle. There is early enhancement of the venous vasculature below the knee. Left: The common femoral and superficial femoral arteries are patent. The popliteal artery is patent. Anterior and posterior tibial arteries as well as the peroneal artery are patent. Anterior and poste rior tibial arteries cross the ankle. VISCERA: The liver, spleen, adrenal glands, kidneys, pancreas, and gallbladder are not optimally enha nced due the arterial phase utilized. LIVER: Stable 1.3 cm cyst adjacent to the falciform ligament. Diffuse fatty infiltration. GALLBLADDER AND BILE DUCTS: Cholelithiasis. No surrounding inflammatory changes. No biliary duct dila tation. PANCREAS: Unremarkable. SPLEEN: Unremarkable. ADRENAL GLANDS: Unremarkable. KIDNEYS AND URETERS: No evidence of hydronephrosis or renal calculus. The kidneys enhance symmetrical ly. PELVIS BLADDER: Incompletely distended but grossly unremarkable. REPRODUCTIVE: Unremarkable. ABDOMEN & PELVIS STOMACH AND BOWEL: Small hiatal hernia. No focal bowel wall thickening or surrounding inflammatory ch anges. The appendix is within normal limits. No evidence of bowel obstruction. PERITONEUM: No evidence of pneumoperitoneum or free fluid. MUSCULOSKELETAL: No acute osseous abnormalities. Mild S-shaped scoliotic curvature of the visualized thoracolumbar spine. Multilevel degenerative disc disease. Most pronounced at L1-L2. Postsurgical christian nges with hardware involving the left first metatarsal. Osteoarthritic changes of both knees with rig ht greater than left. Small left and small to moderate right knee joint effusions. Mild soft tissue e shahida of the right lower extremity distally. LYMPH NODES: No evidence for lymphadenopathy. SOFT TISSUE/ABDOMINAL WALL: Unremarkable LOWER CHEST: Minimal dependent bibasilar subsegmental atelectasis. Trace atelectasis within the lingu la. Aortic valvular calcifications. Mild cardiomegaly. No pericardial effusion. IMPRESSION 1. No evidence of vascular occlusion. 2. No significant atherosclerotic disease involving abdominal aorta and lower extremity vasculature. At least two vessels are seen crossing the ankle joint bilaterally. 3. Mild distal right lower extremity soft tissue edema with early venous enhancement. 4. Cholelithiasis. 5. Hepatic steatosis. [facility], , 06/27/2024 7:44 PM
== END | disposition home or self-care (01) ==
LOC: RADCTMAIN 13:47
PROVIDERS: ATTEND Family Medicine
DX: R22.41 Localized swelling, mass and lump, right lower limb
CPT/HCPCS: 75635

== ENCOUNTER → 2024-07-11 | Outpatient (CLI) | payer BC ==
--- NOTE | 2024-07-11 15:24 | CT ---
CT right knee JUAN protocol. HISTORY: Knee pain COMPARISON: None. TECHNIQUE: Multiple axial images were obtained to the right knee. Coronal and sagittal reconstruction s were generated and reviewed. FINDINGS: There is a large 1 cm osteochondral defect involving the medial femoral condyle. There is marked narr owing medial joint space with hypertrophic spurring consistent with moderate to marked osteoarthritis . There is mild hypertrophic spurring of the lateral compartment which is well preserved. There is mode rate narrowing and hypertrophic spurring and subchondral changes in the patellofemoral compartment in dicating moderate osteoarthritis. IMPRESSION: 1. Tricompartment osteoarthritis moderate to severe in the medial compartment. 2. Large osteochondral defect of the medial femoral condyle. There is a fracture involving the medial femoral condyle cortex with compression. [facility], , 07/11/2024 3:21 PM
== END | disposition home or self-care (01) ==
LOC: RADCTMAIN 13:51
PROVIDERS: ATTEND Orthopaedic Surgery
DX: S83.411D Sprain of medial collateral ligament of right knee, subsequent encounter (principal); S83.251D Bucket-handle tear of lateral meniscus, current injury, right knee, subsequent encounter; M17.11 Unilateral primary osteoarthritis, right knee; M25.461 Effusion, right knee; M95.8 Other specified acquired deformities of musculoskeletal system; Z68.41 Body mass index [BMI] 40.0-44.9, adult

== ENCOUNTER → 2024-08-10 | Outpatient (CLI) | payer BC ==
[2024-08-10 12:14] LABS: INR 0.9 (<1.2); Partial Thromboplastin Time 24.9 sec (22.0-30.0); Prothrombin Time 10.1 sec (10.0-12.5)
[2024-08-10 15:03] LABS: HCT 39.2 % (37.2-46.3); HGB 12.8 g/dL (12.0-15.0); MCH 29.8 pg (27.0-32.0); MCHC 32.7 g/dL (32.0-37.0); MCV 91.2 FL (80.0-97.0); Mean Platelet Volume 11.3 FL (9.5-12.2); NRBC Per 100 WBC 0 X 10*3/uL (0.00-0.01); Platelet Count 284 X 10*3/uL (140-440); RDW 12.9 % (11.5-14.5)
[2024-08-10 15:12] LABS: ALT 43 U/L (8-44); AST 31 U/L (13-35); Albumin 4.3 g/dL (3.8-4.9); Albumin/Globulin Ratio 1.72 Ratio (1.60-3.17); Alkaline Phosphatase 76 U/L (41-126); BUN/Creat Ratio 26.55 Ratio (12.00-20.00); Blood Urea Nitrogen 29.2 mg/dL (9.0-27.0); Calcium 9.7 mg/dL (8.7-10.3); Carbon Dioxide 27.5 mmol/L (21.6-31.8); Chloride 104 mmol/L (96-109); Globulin 2.5 g/dL (1.6-3.3); Glucose 97 mg/dL (70-110); Potassium 4.8 mmol/L (3.5-5.5); Sodium 140 mmol/L (135-145); Total Bilirubin 0.5 mg/dL (0.3-1.2); Total Protein 6.8 g/dL (6.2-8.2)
== END | disposition home or self-care (01) ==
LOC: LABWHC1 10:42
PROVIDERS: ATTEND Orthopaedic Surgery
DX: Z01.818 Encounter for other preprocedural examination (principal); Z22.322 Carrier or suspected carrier of Methicillin resistant Staphylococcus aureus; M17.11 Unilateral primary osteoarthritis, right knee
CPT/HCPCS: 36415; 80053; 83036; 85027; 85610; 85730; 87070

== ENCOUNTER 2024-08-24 12:21 | Day surgery (SDC) | payer BC ==
[2024-08-18 09:53] VITALS: BMI 40.9
[~2024-08-24 12:21] MED LIST changes: -DOBUTamine DRIP for NUC MED 500 MG in DEXTROSE/WATER 1 250ML.BAG IV PRN; -DOBUTamine DRIP for NUC MED 500 MG/250 ML BAG IV ONE; +HYDROmorphone 0.5 MG/0.5 ML SYRINGE IVP PRN; +LIDOCAINE 1% (10MG/ML) FOR IV START INTRADERMA PRN; +TRANEXAMIC 1,000 MG/100ML-NACL 1,000 MG in SALINE 1 100ML.BAG IV PRN; +TRANEXAMIC 1,000 MG/100ML-NACL 1,000 MG in SALINE 1 100ML.BAG IVPB PRN
[2024-08-24] MEDS: IV FLUID CONTINUATION 1,000 ML IV ONE (13:04)
[2024-08-24] MEDS: LACTATED RINGERS 1,000 ML IV SCH (13:05)
[2024-08-24] MEDS: DOCUSATE 100 MG CAP PO PRN (13:19)
[2024-08-24] MEDS: ACETAMINOPHEN TAB 500 MG TAB PO PRN (13:19)
[2024-08-24] MEDS: oxyCODONE ER 10 MG TAB.ER.12H PO PRN (13:20)
[2024-08-24] MEDS: ONDANSETRON 4 MG/2 ML VIAL IVP PRN (13:21)
[2024-08-24] MEDS: FAMOTIDINE 20 MG/2 ML VIAL IVP PRN (13:22)
[2024-08-24] MEDS: DEXAMETHASONE SOD PHOSPHATE 10 MG/ML 1 ML VIAL IV PRN (13:22)
[2024-08-24 13:26] LABS: Glucose,Whole Blood 105 mg/dL (70-110)
[2024-08-24] MEDS: fentaNYL (PF) 50 MCG/ML 2 ML AMP IVP ONE (13:44)
[2024-08-24] MEDS: MIDAZOLAM 2 MG/2 ML VIAL IVP ONE (13:44)
[2024-08-24] MEDS ORDERED: LIDOCAINE 1% INJ 10MG/ML (20 ML MDV) ONE (14:08)
[2024-08-24] MEDS ORDERED: TRANEXAMIC 1,000 MG/100ML-NACL PREMIX BAG ONE (14:08)
[2024-08-24] MEDS ORDERED: MIDAZOLAM 2 MG/2 ML VIAL ONE (14:08)
[2024-08-24] MEDS ORDERED: SODIUM CHLORIDE 0.9% (PF) 10 ML VIAL ONE (14:08)
[2024-08-24] MEDS ORDERED: PROPOFOL 10 MG/ML 20 ML VIAL IV ONE (14:08)
[2024-08-24] MEDS ORDERED: ROPIVACAINE 5 MG/ML 30 ML VIAL ONE (14:08)
[2024-08-24] MEDS ORDERED: KETAMINE HCL IN 0.9 % NACL 50 MG/5 ML SYRINGE ONE (14:08)
[2024-08-24] MEDS: ROPIVACAINE 5 MG/ML 30 ML VIAL MISCELLANE ONE (15:04)
[2024-08-24] MEDS: LACTATED RINGERS 1,000 ML IV ONE (15:23)
[2024-08-24] MEDS ORDERED: ONDANSETRON 4 MG/2 ML VIAL IVP PRN (16:04)
[2024-08-24] MEDS ORDERED: bisacodyL 10 MG SUPP RECTAL PRN (16:04)
[2024-08-24] MEDS ORDERED: NALOXONE 0.4 MG/ML 1 ML VIAL IV PRN (16:04)
[2024-08-24] MEDS ORDERED: HYDROmorphone 0.5 MG/0.5 ML SYRINGE IVP PRN (16:04)
[2024-08-24] MEDS ORDERED: MAGNESIUM HYDROXIDE 2,400 MG/30 ML CUP PO PRN (16:04)
[2024-08-24] MEDS ORDERED: NA PHOS,M-B/NA PHOS,DI-BA 133 ML ENEMA RECTAL PRN (16:04)
--- NOTE | 2024-08-24 16:04 | P.OP ---
Date of Procedure: 08/24/24 Preoperative Diagnosis: severe right knee osteoarthritis Postoperative Diagnosis: Same Procedure(s) Performed: 1. Right total knee arthroplasty 2. Computer assisted musculoskeletal navigation using CT/MRI images Implants: 1. [place] [employer] CR Femur Size #2 2. [employer] [place] Tibial Base Size #1 3. [place] Tri[employer]lon CS poly Size #1, 10mm 4. [place] Tri[employer]lon all poly patella, Size #29 Anesthesia: regional, spinal Surgeon: Cristofer Martinez Core Machine Tender #1: Elmer Ruiz Estimated Blood Loss (ml): 100 IV fluids (ml): 800 Pathology: none sent Condition: stable Disposition: PACU Indications for Procedure: I met with the patient preoperatively in the office setting and discussed treatment of their symptomatic knee arthritis. They failed a long course of nonsurgical treatment and elected to proceed with an elective total knee replacement. I discussed the potential risks and complications at length and gave them ample time to ask questions. Risks discussed included: risks from anesthesia, superficial site surgical infection, acute and/or chronic periprosthetic joint infection, delayed wound healing, drainage, wound necrosis, instability, stiffness, stiffness requiring manipulation and/or revision surgery, damage to local blood vessels or nerves, aseptic loosening of the implants, extensor mechanism issues including disruption, patellar maltracking, avascular necrosis etc., continued or worsened knee pain, generalized dissatisfaction with surgical outcome, need for revision surgery, an inability to regain preinjury level of function, DVT, PE, other medical complications, and possibly loss of life or limb. The patient voiced their understanding that while these are the most common complications other less common complications are possible. They provided both their verbal and written consent to go forward with surgery. Operative Findings: severe medial and patellofemoral arthritis with complete cartilage loss. Partial thickness lateral compartment cartilage loss. Description of Procedure: The patient was identified in preoperative holding and the correct operative extremity was verified and marked with a marker. I reviewed the consent form with the patient at length. All of their questions were answered. The patient was given a block by anesthesia. They were then brought back to the operating room. They were transferred onto the operating room table where a general anesthetic, preoperative antibiotics, and tranexamic acid were administered by anesthesia. A tourniquet was applied to the proximal aspect of the operative extremity. The contralateral extremity was padded under the heel and secured to the operating room table with a nonsterile blue towel and tape. The ipsilateral arm was carefully draped across the patient's chest and secured with a pillow and foam. A post was applied over the lateral aspect of the ipsilateral thigh and a bolster was placed under the ipsilateral foot. I verified that the operative extremity was stable and the knee was flexed to 90. The operative extremity was then placed in a leg eugene, nonsterile drapes were applied, and the extremity was prepped and draped sterilely in the standard sterile fashion. Prior to starting surgery timeout was performed identifying the correct patient, operative extremity, and procedure. The leg was then elevated, exsanguinated with an Esmarch bandage, and the tourniquet was inflated. An anterior midline incision was made sharply with a scalpel. Once I had dissected deep to the superficial fascial layer medial and lateral flaps were elevated. A medial parapatellar arthrotomy was created. Upon opening the knee joint there were diffuse arthritic changes in all 3 compartments. The anterior horn of the medial meniscus were sharply released and a medial release was performed around the posterior medial corner of the knee to facilitate retractor placement. The fat pad was excised with electrocautery. The patella was found to be severely arthritic and a provisional cut was made with a sagittal saw to facilitate mobilization of the extensor mechanism during the procedure. Remnants of the ACL and PCL were then excised from the notch. 4 mm pins were then placed within the incision in the medial distal femur and proximal tibia. Arrays were applied to the pins and I verified they were completely tightened. The knee was then registered with the Nintex robot and manipulations in implant position were made to balance the knee and opitmize implant position. Using the Elder robotic saw all cuts were made in accordance with our plan. After all bony fragments had been removed the cuts were verified with the planar probe. The tibia was then subluxed forward and sized. The knee was brought into flexion and a lamina alumni relations coordinator was placed to allow removal of the meniscal remnants both medially and laterally as well as posterior osteophytes. Local anesthetic was then infiltrated around the joint capsule. Trial implants were then placed within the knee. Range of motion and collateral ligament tension was then evaluated. Adjustments in implant size and position were then made accordingly. Once the knee was felt to be appropriately balanced the Elder pins were removed. The patella was then recut, sized, and punched. A trial patellar button was then placed. With the trial components in place, the patella tracked midline. The femur was then drilled and the trial component removed. The trial tibial component was then appropriately rotated, pinned, and prepared for the keel. All trial components were then removed from the knee. The knee was thoroughly irrigated with pulsatile lavage. Cement was prepared via vacuum mixing in a bowl on the back table. I then hand pressurized cement into the femur and tibia and placed the implants beginning with the tibial base tray and poly liner, femoral component, and finally the patellar button. All extruded cement was removed including from the pin sites. Once the cement had hardened the knee was evaluated one final time with the final polyethylene liner in place. The knee had full extension and flexion and felt stable to varus and valgus stress throughout the arc of motion. The tourniquet was released and with the tourniquet down the patella tracked midline. All bleeders were controlled with electrocautery. The knee was then soaked for 3 minutes with a dilute Betadine soak. The knee was thoroughly irrigated using 3 L of sterile saline and pulsatile lavage. The extensor mechanism was then reapproximated using pop off Vicryl sutures followed by a running barbed suture. The knee was then closed in layers with a 0 strata fix for the deep fascial layer, 2-0 strata fix for the superficial subcutaneous layer and Monocryl and Steri-Strips for the skin. A sterile dressing was applied. I verified that all instrument, sponge, and sharp counts were correct. The patient was then transferred off the operating room table, extubated, and brought to recovery having tolerated the procedure well. Elmer Ruiz PA-C was required as a skilled senior office assistant for patient positioning, draping, exposure, retraction, closure of wound and application of dressing PLAN: The patient can weight-bear as tolerated on the operative extremity. DVT prophylaxis with aspirin 81 mg twice a day based on preoperative risk strati fication. Internal medicine for perioperative medical management. 2 doses of post-operative antibiotics. Physical therapy for gait training. Follow-up in the office in 2 weeks for wound check and x-rays of the knee including an AP and lateral.
[2024-08-24] MEDS: droPERidol 5 MG/2 ML VIAL IVP ONE (16:55)
[2024-08-24] MEDS: ONDANSETRON 4 MG/2 ML VIAL IVP ONE (16:56)
--- NOTE | 2024-08-24 16:58 | XR ---
EXAMINATION TYPE: XR knee limited RT DATE OF EXAM: 08/24/2024 4:48 PM COMPARISON: None CLINICAL INDICATION: Female, 63 years old with history of Evaluation for Postop abnormality and align ment; [facility] TECHNIQUE: XR knee limited RT 2 views submitted. FINDINGS: Status post total knee arthroplasty changes with hardware in appropriate alignment and in tact. No evidence of fracture. Subcutaneous lucencies and lucencies within the joint consistent with surgical changes. IMPRESSION: Status post total knee arthroplasty changes with hardware intact and appropriate alignment. No fractu res identified. [facility], , 08/24/2024 4:56 PM
[2024-08-24 17:05] LABS: Glucose,Whole Blood 109 mg/dL (70-110)
[2024-08-24] MEDS: SODIUM CHLORIDE 0.9% 1,000 ML IV SCH (18:10)
--- NOTE | 2024-08-24 18:17 | P.ANPRN ---
Procedure Note - Anesthesia - Nerve Block Performed Right Adductor Canal Single Time Out Performed: Yes (1344) Date of Procedure: 08/24/24 Procedure Start Time: 13:45 Procedure Stop Time: 13:50 Location of Patient: PreOp Indication: Acute Post-Operative Pain, Requested by Surgeon Specifically requested for management of pain by DrKole: Cristofer Martinez Sedation Type: Sedate with meaningful contact maintained Preparation: Sterile Prep Position: Supine Catheter: None Needle Types: Pajunk Needle Gauge: 21 Ultrasound used to visualize needle placement: Yes Ultrasound used to observe medication spread: Yes Injectate: 0.5% Ropivacaine (see comment for volume) (15cc+10cc nacl pf) Blood Aspirated: No Pain Paresthesia on Injection Noted: No Resistance on Injection: Normal Image Stored and Saved: Yes Events: Uneventful and Well Tolerated
--- NOTE | 2024-08-24 18:18 | P.ANPRN ---
Procedure Note - Anesthesia - Nerve Block Performed Right iPack Single Time Out Performed: Yes (1344) Date of Procedure: 08/24/24 Procedure Start Time: 13:51 Procedure Stop Time: 13:55 Location of Patient: PreOp Indication: Acute Post-Operative Pain, Requested by Surgeon Specifically requested for management of pain by DrKole: Cristofer Martinez Sedation Type: Sedate with meaningful contact maintained Preparation: Sterile Prep Position: Supine Catheter: None Needle Types: Pajunk Needle Gauge: 21 Ultrasound used to visualize needle placement: Yes Ultrasound used to observe medication spread: Yes Injectate: 0.5% Ropivacaine (see comment for volume) (15cc+10cc nacl pf) Blood Aspirated: No Pain Paresthesia on Injection Noted: No Resistance on Injection: Normal Image Stored and Saved: Yes Events: Uneventful and Well Tolerated
[2024-08-24] MEDS: HYDROmorphone 1 MG/ML 1 ML SYRINGE IVP PRN (20:11)
[2024-08-24] MEDS: SENNOSIDES-DOCUSATE SODIUM 1 EACH TAB PO SCH (21:26)
[2024-08-24] MEDS: ASPIRIN 81 MG PO SCH (21:26)
[2024-08-24] MEDS ORDERED: TEMAZEPAM 15 MG CAP PO PRN (22:00)
[2024-08-24] MEDS: HYDROcodone/APAP 5-325MG 1 EACH TAB PO PRN (23:06)
--- NOTE | 2024-08-25 01:32 | P.CONS ---
History of Present Illness - Reason for Consult Consult date: 08/24/24 Medical Management - History of Present Illness History of present illness; Patient is a very pleasant 63-year-old female who presented to the hospital to undergo right total knee arthroplasty. Patient underwent this operation earlier this afternoon without complication. When seen at bedside the patient was just able to get up and move about the room to use the restroom. Patient states that she is having some generalized soreness however otherwise is resting comfortably in bed, and has no current complaints. Reports mild pain at the surgical site. Initial lab workup revealed: -Glucose 109 Imaging: -Right knee x-ray s/p total knee arthroplasty changes with hardware intact and appropriate alignment. REVIEW OF SYSTEMS: All systems reviewed, pertinent positives and negatives noted in HPI. All other symptoms are negative. PHYSICAL EXAMINATION: Vitals reviewed GENERAL: No acute distress. Well developed, well nourished. HEENT: Pupils are round and equally reacting to light. EOMI. No scleral icterus. Normocephalic, atraumatic. No pharyngeal erythema. No thyromegaly. CARDIOVASCULAR: S1 and S2 present. No murmurs, rubs, or gallops. PULMONARY: Chest is clear to auscultation, no wheezing, rhonchi, or crackles. ABDOMEN: Soft, nontender, nondistended, normoactive bowel sounds. No palpable organomegaly. MUSCULOSKELETAL: No apparent joint swelling and deformities. EXTREMITIES: No apparent cyanosis, clubbing, or pedal edema. NEUROLOGICAL: The patient is alert and oriented x3, Gross neurological examination did not reveal any focal deficits. 5/5 strength bilateral UE and LE. SKIN: No apparent rashes. R knee dressing in place clean and dry without any abnormalities noted Assessment and plan 63-year-old female with PMH of hypertension, hyperlipidemia, diabetes mellitus, anxiety/depression. Who presents to the hospital for right total knee arthroplasty. Patient has been accepted to the internal medicine service for medical management. Chronic Medical Conditions #Hypertension -Resume patient's home Losartan 50 mg qd but hold the diuretic HCTZ #Diabetes mellitus, type 2 Holding oral medications Begin Accu-Cheks and medium-dose sliding scale, monitor for hypoglycemia #Hyperlidemia - Resume home Crestor 5 mg every morning #GERD - Resume home famotidine 40mg #Anxiety/Depression - Resume home Prozac 10 mg daily #Right total knee arthroplasty -Pain management and DVT prophylaxis per primary surgical team -Physical therapy consulted F: Normal saline 100 cc/h E: Replete as needed N: Clear liquid diet to be advanced to regular DVT ppx: per primary surgical team Code status: Full code Patient is stable from medical stand point Follow up CBC and CMP in AM Dictation was produced using [employer] dictation software. Please excuse any grammatical, word or spelling errors. Past Medical History Past Medical History: Chest Pain / Angina, Diabetes Mellitus, GERD/Reflux, Hearing Disorder / Deafness, Hyperlipidemia, Hypertension, Myocardial Infarction (OH), Osteoarthritis (OA) Additional Past Medical History / Comment(s): irreg. heart rate, kidney stones, Recently dx with diabetes and started on Metformin. Pt states she was told [address] Roach that she had a heart attack. Pt doesn't know when OH happened. Last Myocardial Infarction Date:: Pt doesn't know date. History of Any Multi-Drug Resistant Organisms: None Reported Past Surgical History: Back Surgery, Orthopedic Surgery, Tubal Ligation Additional Past Surgical History / Comment(s): rt thumb surgery tendon and trigger finger , rt carpal tunnel, rt rotator cuff , bunionectomy and hammer toe rt foot, c 5-6 spinal fusion, lt foot surgery, colonoscopy. Past Anesthesia/Blood Transfusion Reactions: No Reported Reaction Additional Past Anesthesia/Blood Transfusion Reaction / Comm: No hx of blood transfusion to date. Past Psychological History: Depression Smoking Status: Former smoker, Vaper Past Alcohol Use History: None Reported Additional Past Alcohol Use History / Comment(s): smoker 30 years <1/2 ppd quit smoking cigarettes 2020. Quit vaping 6 months. Quit drinking Past Drug Use History: None Reported - Past Family History Mother Family Medical History: No Reported History Father Family Medical History: Cancer Additional Family Medical History / Comment(s): Liver cancer Medications and Allergies Home Medications Medication Instructions Recorded Confirmed Type Centrum Silver(Unknown Dose) 1 dose PO QAM 08/18/24 08/18/24 History Cyclobenzaprine [Flexeril] 10 mg PO QAM 08/18/24 08/18/24 History Diclofenac Sodium [Voltaren] 75 mg PO BID 08/18/24 08/18/24 History Es-Mag(Unknown Dose) 1 dose PO QAM 08/18/24 08/18/24 History FLUoxetine HCL [PROzac] 10 mg PO QAM 08/18/24 08/24/24 History Famotidine 40 mg PO HS 08/18/24 08/24/24 History Fish Oil/Dha/Epa [Fish Oil 1,200 2,400 mg PO HS 08/18/24 08/18/24 History mg Fish Oil] Losartan-Hctz 50-12.5 mg [Hyzaar 1 tab PO HS 08/18/24 08/24/24 History 50-12.5] Mag/Calcium(Unknown Dose) 1 dose PO BID 08/18/24 08/18/24 History Omeprazole [PriLOSEC] 40 mg PO QAM 08/18/24 08/24/24 History Phentermine HCl 1 tab PO QAM 08/18/24 08/24/24 History Pregabalin [Lyrica] 100 mg PO BID 08/18/24 08/18/24 History Rosuvastatin [Crestor] 5 mg PO QAM 08/18/24 08/24/24 History Vitb12(Unknown Dose) 1,000 mcg PO QAM 08/18/24 08/18/24 History Vitd3(Unknown Dose) 1 tab PO QAM 08/18/24 08/18/24 History metFORMIN HCL [Glucophage] 500 mg PO QAM 08/18/24 08/24/24 History Acetaminophen [Tylenol] 650 mg PO BID PRN 08/24/24 08/24/24 History Allergies Allergy/AdvReac Type Severity Reaction Status Date / Time naproxen [From Aleve] Allergy Anaphylaxis Verified 08/24/24 12:55 phenazopyridine Allergy Rash/Hives Verified 08/24/24 12:55 [From Pyridium] Physical Exam Vitals: Vital Signs Temp Pulse Pulse Resp BP Pulse Ox 08/24/24 19:01 98.1 F 85 18 123/75 99 08/24/24 18:46 82 118/77 97 08/24/24 18:31 80 125/79 95 08/24/24 18:16 78 124/72 98 08/24/24 18:02 73 128/72 97 08/24/24 17:46 75 118/75 95 08/24/24 17:31 71 127/71 91 L 08/24/24 17:17 76 130/74 97 08/24/24 17:13 97.3 F L 72 16 132/76 99 08/24/24 16:50 73 16 128/66 95 08/24/24 16:35 72 18 117/60 99 08/24/24 16:20 97.7 F 71 18 118/58 93 L 08/24/24 13:59 77 16 126/73 97 08/24/24 12:57 97.4 F L 78 16 166/76 97 Intake and Output 08/24/24 08/24/24 08/25/24 14:59 22:59 06:59 Intake Total 850 400 Output Total 100 Balance 850 300 Intake: IV 850 400 Sodium Chloride 0.9% 1, 100 000 ml @ 100 mls/hr IV . Q10H [facility] Rx#:[id number] Output: Estimated Blood Loss 100 Other: Weight 96.8 kg 96.8 kg
[2024-08-25] MEDS: HYDROcodone/APAP 10-325MG 1 EACH TAB PO PRN (06:04)
[2024-08-25] MEDS: hydrOXYzine pamoate 25 MG CAP PO PRN (06:04)
[2024-08-25 06:44] LABS: Glucose,Whole Blood 108 mg/dL (70-110)
[2024-08-25] MEDS: INSULIN ASPART (NovoLOG) 100 UNIT/ML VIAL SQ SCH (06:46)
--- NOTE | 2024-08-25 08:10 | P.PN ---
Subjective Progress Note Date: 08/25/24 Principal diagnosis: Severe right knee osteoarthritis Status post right total knee arthroplasty No acute events overnight per patient. Patient has pain in their right knee after taking oral Plain. We discussed adding anti-inflammatory and Percocet for pain control. Patient will work with physical therapy today. Patient may discharge home if by physical therapy, cleared by medicine, and pain controlled this afternoon, or may stay the night. Objective - Vital Signs Vital signs: Vital Signs Temp 97.3 F L 08/25/24 07:07 Pulse 70 08/25/24 07:07 Resp 17 08/25/24 07:07 BP 125/78 08/25/24 07:07 Pulse Ox 97 08/25/24 07:07 FiO2 Intake & Output 08/24/24 08/25/24 08/25/24 18:59 06:59 18:59 Intake Total 1250 813 Output Total 100 Balance 1150 813 Weight 96.8 kg Intake: IV 1250 Sodium Chloride 0.9% 1, 100 000 ml @ 100 mls/hr IV . Q10H [facility] Rx#:[id number] Oral 813 Output: Estimated Blood Loss 100 Other: # Voids 3 - Exam Patient was examined at bedside. Patient is resting comfortably in bed. No apparent distress. They are awake, alert and able to answer questions. On inspection the right surgical knee dressing is intact, there is no drainage or strikethrough. The skin surrounding the dressing is free of erythema. There is mild swelling in the operative thigh. Operative femoral nerve function is intact. The patient is able to actively plantarflex and dorsiflex their operative ankle and toes. Assessment and Plan Assessment: Severe right knee osteoarthritis Postop day #1 status post right total knee arthroplasty by Dr. Martinez Plan: Weight-bear as tolerated on the operative extremity. Use a walker to ambulate. Leave surgical dressing in place. Physical therapy for gait training and mobilization. Internal medicine for perioperative medical management. Disposition: Will work with physical therapy, if passes physical therapy, and is cleared by medicine, and pain is controlled patient may discharge home later today, or stay tonight.
[2024-08-25 08:40] LABS: ALT 31 U/L (8-44); AST 24 U/L (13-35); Albumin 3.8 g/dL (3.8-4.9); Alkaline Phosphatase 66 U/L (41-126); Basophils # (A) 0.02 X 10*3/uL (0.00-0.10); Basophils % (A) 0.3 %; Blood Urea Nitrogen 16.8 mg/dL (9.0-27.0); Calcium 8.9 mg/dL (8.7-10.3); Carbon Dioxide 22.6 mmol/L (21.6-31.8); Chloride 106 mmol/L (96-109); Eosinophils # (A) 0 X 10*3/uL (0.04-0.35); Eosinophils % (A) 0 %; Glucose 113 mg/dL (70-110); HCT 35.5 % (37.2-46.3); Lymphocytes # (A) 0.74 X 10*3/uL (0.90-5.00); Lymphocytes % (A) 9.3 %; MCHC 33.8 g/dL (32.0-37.0); MCV 88.8 FL (80.0-97.0); Mean Platelet Volume 11.5 FL (9.5-12.2); Monocytes # (A) 0.64 X 10*3/uL (0.20-1.00); NRBC Per 100 WBC 0 X 10*3/uL (0.00-0.01); Neutrophils # (A) 6.57 X 10*3/uL (1.80-7.70); Platelet Count 293 X 10*3/uL (140-440); Potassium 4.2 mmol/L (3.5-5.5); RDW 12.4 % (11.5-14.5); Sodium 140 mmol/L (135-145); Total Bilirubin 0.5 mg/dL (0.3-1.2); Total Protein 5.8 g/dL (6.2-8.2)
[2024-08-25] MEDS: FLUoxetine HCL 10 MG CAP PO SCH (08:41)
[2024-08-25] MEDS: MELOXICAM 7.5 MG TAB PO SCH (08:41)
[2024-08-25] MEDS: ATORVASTATIN 10 MG TAB PO SCH (08:42)
[2024-08-25 11:47] LABS: Glucose,Whole Blood 95 mg/dL (70-110)
--- NOTE | 2024-08-25 13:11 | P.PN ---
Subjective Progress Note Date: 08/25/24 Subjective: Patient seen and examined at bedside. No acute events overnight. Still complaining of significant right knee pain. Pertinent positives and negatives as discussed above, a complete review of systems was performed and all other systems are negative. Vitals Signs Reviewed. General: Nontoxic, no distress, appears at stated age Derm: Warm, dry, dressing clean, dry, intact Head: Atraumatic, normocephalic, symmetric Eyes: EOMI, no lid lag, anicteric sclera Mouth: No lip lesion, mucus membranes moist Cardiovascular: S1S2 reg, no murmur Lungs: CTA bilateral, no rhonchi, no rales, no accessory muscle use Abdominal: Soft, nontender to palpation, no guarding, no appreciable orga nomegaly Ext: No gross muscle atrophy, no edema, no contractures Neuro: CN II-XI grossly intact, no focal neuro deficits Psych: Alert, oriented, appropriate affect Data Reviewed Today: Pertinent Labs: WBC 8, hemoglobin 12, creatinine 0.7, blood sugars range between 95-1 13 Imaging: No new imaging Assessment and Plan: Hypertension -Continue losartan 50, hydrochlorothiazide 12.5 nightly Dyslipidemia -Continue atorvastatin 10 daily Depression -Continue Prozac 10 daily GERD -Continue famotidine 40 nightly Status post right knee surgery -Ortho note reviewed, continue pain therapy with oral [place] as needed, IV Dilaudid as needed, monitor for sedation -Bowel regimen per orthopedic surgery -Aspirin 81 twice daily for DVT prophylaxis Patient is medically optimized for discharge. Thank you for allowing us to participate in the care of this pleasant patient. Do not hesitate to contact us with questions. Someone can be reached from the [facility] hospitalist group all hours of the day at [phone] or via perfect serve. Objective - Vital Signs Vital signs: Vital Signs Temp 97.3 F L 08/25/24 07:07 Pulse 70 08/25/24 07:07 Resp 17 08/25/24 07:07 BP 125/78 08/25/24 07:07 Pulse Ox 97 08/25/24 07:07 FiO2 Intake & Output 08/24/24 08/25/24 08/25/24 18:59 06:59 18:59 Intake Total 1250 813 Output Total 100 Balance 1150 813 Weight 96.8 kg Intake: IV 1250 Sodium Chloride 0.9% 1, 100 000 ml @ 100 mls/hr IV . Q10H [facility] Rx#:[id number] Oral 813 Output: Estimated Blood Loss 100 Other: # Voids 3 - Labs CBC & Chem 7: 08/25/24 05:26 08/25/24 05:26 Labs: Abnormal Lab Results - Last 24 Hours (Table) 08/25/24 08/25/24 Range/Units 05:26 05:26 RBC 4.00 L (4.10-5.20) X 10*6/uL Hct 35.5 L (37.2-46.3) % Lymphocytes # 0.74 L (0.90-5.00) X 10*3/uL Eosinophils # 0 L (0.04-0.35) X 10*3/uL BUN/Creatinine Ratio 24.00 H (12.00-20.00) Ratio Glucose 113 H (70-110) mg/dL Total Protein 5.8 L (6.2-8.2) g/dL
[2024-08-25 16:36] LABS: Glucose,Whole Blood 90 mg/dL (70-110)
[2024-08-25] MEDS: oxyCODONE-APAP 5-325MG 1 EACH TAB PO PRN (16:55)
[2024-08-25 20:25] LABS: Glucose,Whole Blood 119 mg/dL (70-110)
[2024-08-25] MEDS: FAMOTIDINE 20 MG TAB PO SCH (20:41)
[2024-08-25] MEDS: LOSARTAN-HCTZ 50-12.5 MG 1 EACH TAB PO SCH (20:41)
[2024-08-26 06:50] LABS: Glucose,Whole Blood 104 mg/dL (70-110)
[2024-08-26 07:46] VITALS: BP 126/68; PULSE 70; RESP 17; TEMP 97.2
--- NOTE | 2024-08-26 07:54 | P.PN ---
Subjective Progress Note Date: 08/26/24 Still very painful in her right knee. She is requesting both Percocet and Dilaudid. She has no other complaints Objective - Vital Signs Vital signs: Vital Signs Temp 97.2 F L 08/26/24 07:24 Pulse 70 08/26/24 07:24 Resp 17 08/26/24 07:24 BP 126/68 08/26/24 07:24 Pulse Ox 96 08/26/24 07:24 FiO2 Intake & Output 08/25/24 08/26/24 08/26/24 18:59 06:59 18:59 Intake Total 540 Balance 540 Intake: Oral 540 Other: Voiding Method Toilet # Voids 3 3 - Exam The patient is sitting up at bedside. She is alert and able to answer questions . A focused exam the right lower extremity was conducted. Her dressing is intact with no drainage or strike through. She has moderate swelling in the thigh or calf. Her thigh and calf are compressible. Motor and sensory function are intact. - Labs CBC & Chem 7: 08/25/24 05:26 08/25/24 05:26 Labs: Abnormal Lab Results - Last 24 Hours (Table) 08/25/24 08/25/24 08/25/24 Range/Units 05:26 05:26 20:22 RBC 4.00 L (4.10-5.20) X 10*6/uL Hct 35.5 L (37.2-46.3) % Lymphocytes # 0.74 L (0.90-5.00) X 10*3/uL Eosinophils # 0 L (0.04-0.35) X 10*3/uL BUN/Creatinine Ratio 24.00 H (12.00-20.00) Ratio Glucose 113 H (70-110) mg/dL POC Glucose (mg/dL) 119 H (70-110) mg/dL Total Protein 5.8 L (6.2-8.2) g/dL Assessment and Plan Assessment: Postoperative day #2 status post right total knee replacement BMI 39 Plan: Patient was seen at bedside this morning. She continues to have postoperative pain. We will work on transitioning her from IV to oral pain medication. We increased her dose of Percocet. I encouraged mobilization and ice. Otherwise the patient is doing well. I encouraged her. If she is comfortable later today we will discharge her home if she needs an additional 24 hours of pain control we will keep her until tomorrow.
[2024-08-26] MEDS: oxyCODONE-APAP 7.5-325MG 1 EACH TAB PO PRN (08:04)
--- NOTE | 2024-08-26 09:14 | P.DS ---
Providers Expected date of discharge: 08/26/24 Attending physician: Cristofer Martinez Consults: 08/24/24 16:04 Consult Physician Routine Consulting Provider: Santy Mercado Consult Reason/Comments: post op medical management Do you want consulting provider notified?: Yes Primary care physician: Nando Gallagher - Discharge Diagnosis(es) (1) Osteoarthritis of right knee Current Visit: Yes Status: Acute (2) Status post total right knee replacement Current Visit: Yes Status: Acute Hospital Course: This is a 63-year-old female who was last seen with complaint of continued right knee pain. The patient has a known history of degenerative arthritis of the right knee and presents to discuss surgical options. After discussion and consideration the patient elects to proceed with total right knee arthroplasty. The patient is seen preoperatively by her primary care physician and cleared for surgery. The patient is admitted to [facility] for total right knee arthroplasty. The procedures performed without complication or sequelae. Patient is doing well postoperatively. Vital signs are stable at discharge. Labs are stable at discharge. the patient is ambulating well with walker with minimal assistance. The patient is discharged to home on postop day # 2 pending medical clearance. Please see orders and refer to the med rec for accurate list of medications. Patient Condition at Discharge: Good Plan - Discharge Summary Discharge Rx Participant: Yes New Discharge Prescriptions: New oxyCODONE-APAP 5-325MG [Percocet 5-325 mg] 1 tab PO Q6HR PRN #28 tab PRN Reason: Pain Sennosides-Docusate Sodium [Senokot-S] 1 tab PO BID PRN #60 tablet PRN Reason: Constipation Ondansetron [Zofran] 4 mg PO Q6HR PRN #30 tab PRN Reason: Nausea Aspirin 81 mg PO BID #60 tab Omeprazole 20 mg PO DAILY PRN #30 tab PRN Reason: Gi Upset No Action Vitb12(Unknown Dose) 1,000 mcg PO QAM Rosuvastatin [Crestor] 5 mg PO QAM Pregabalin [Lyrica] 100 mg PO BID Omeprazole [PriLOSEC] 40 mg PO QAM Mag/Calcium(Unknown Dose) 1 dose PO BID Cyclobenzaprine [Flexeril] 10 mg PO QAM Famotidine 40 mg PO HS metFORMIN HCL [Glucophage] 500 mg PO QAM Vitd3(Unknown Dose) 1 tab PO QAM Phentermine HCl 1 tab PO QAM Losartan-Hctz 50-12.5 mg [Hyzaar 50-12.5] 1 tab PO HS Fish Oil/Dha/Epa [Fish Oil 1,200 mg Fish Oil] 2,400 mg PO HS FLUoxetine HCL [PROzac] 10 mg PO QAM Es-Mag(Unknown Dose) 1 dose PO QAM Diclofenac Sodium [Voltaren] 75 mg PO BID Centrum Silver(Unknown Dose) 1 dose PO QAM Acetaminophen [Tylenol] 650 mg PO BID PRN PRN Reason: Pain Discharge Medication List Centrum Silver(Unknown Dose) 1 dose PO QAM 08/18/24 [History] Cyclobenzaprine [Flexeril] 10 mg PO QAM 08/18/24 [History] Diclofenac Sodium [Voltaren] 75 mg PO BID 08/18/24 [History] Es-Mag(Unknown Dose) 1 dose PO QAM 08/18/24 [History] FLUoxetine HCL [PROzac] 10 mg PO QAM 08/18/24 [History] Famotidine 40 mg PO HS 08/18/24 [History] Fish Oil/Dha/Epa [Fish Oil 1,200 mg Fish Oil] 2,400 mg PO HS 08/18/24 [History] Losartan-Hctz 50-12.5 mg [Hyzaar 50-12.5] 1 tab PO HS 08/18/24 [History] Mag/Calcium(Unknown Dose) 1 dose PO BID 08/18/24 [History] Omeprazole [PriLOSEC] 40 mg PO QAM 08/18/24 [History] Phentermine HCl 1 tab PO QAM 08/18/24 [History] Pregabalin [Lyrica] 100 mg PO BID 08/18/24 [History] Rosuvastatin [Crestor] 5 mg PO QAM 08/18/24 [History] Vitb12(Unknown Dose) 1,000 mcg PO QAM 08/18/24 [History] Vitd3(Unknown Dose) 1 tab PO QAM 08/18/24 [History] metFORMIN HCL [Glucophage] 500 mg PO QAM 08/18/24 [History] Acetaminophen [Tylenol] 650 mg PO BID PRN 08/24/24 [History] Aspirin 81 mg PO BID #60 tab 08/25/24 [Rx] Omeprazole 20 mg PO DAILY PRN #30 tab 08/25/24 [Rx] Ondansetron [Zofran] 4 mg PO Q6HR PRN #30 tab 08/25/24 [Rx] Sennosides-Docusate Sodium [Senokot-S] 1 tab PO BID PRN #60 tablet 08/25/24 [Rx] oxyCODONE-APAP 5-325MG [Percocet 5-325 mg] 1 tab PO Q6HR PRN #28 tab 08/25/24 [Rx] Follow up Appointment(s)/Referral(s): [facility] [[facility]] - 1-2 Days ([facility] will call you to schedule your in home physical therapy visits. ) Cristofer Martinez MD [Medical Doctor] - 2 Weeks Activity/Diet/Wound Care/Special Instructions: 1. Weight-bear as tolerated on your operative extremity unless instructed otherwise. Use a walker or other assistive device to ambulate. 2. Leave surgical dressing in place. If your dressing becomes saturated with blood, there is drainage, or the dressing becomes loose please contact the office. 3. It is okay to shower with your surgical dressing, but do not submerge in water (no hot tubs, bath's, swimming etc.) 4. Make sure to take her blood clot prevention medication as prescribed (aspirin, Eliquis, Xarelto, and Plavix are commonly prescribed medications for blood clot prevention) 5. While taking [place] or Percocet for pain make sure you're taking a stool softener (Colace) and drink lots of water. 6. Keep all follow-up appointments as scheduled. You will usually be seen in 1-2 weeks following surgery. 7. Please contact the office with any questions or concerns [phone] Discharge Disposition: HOME WITH HOME HEALTH SERVICES
[2024-08-26 11:59] LABS: Glucose,Whole Blood 100 mg/dL (70-110)
--- NOTE | 2024-08-26 14:05 | P.PN ---
Subjective Progress Note Date: 08/26/24 Subjective: Patient seen and examined at bedside. No acute events overnight. Still complaining of significant right knee pain. Pertinent positives and negatives as discussed above, a complete review of systems was performed and all other systems are negative. Vitals Signs Reviewed. General: Nontoxic, no distress, appears at stated age Derm: Warm, dry, dressing clean, dry, intact Head: Atraumatic, normocephalic, symmetric Eyes: EOMI, no lid lag, anicteric sclera Mouth: No lip lesion, mucus membranes moist Cardiovascular: S1S2 reg, no murmur Lungs: CTA bilateral, no rhonchi, no rales, no accessory muscle use Abdominal: Soft, nontender to palpation, no guarding, no appreciable organ omegaly Ext: No gross muscle atrophy, no edema, no contractures Neuro: CN II-XI grossly intact, no focal neuro deficits Psych: Alert, oriented, appropriate affect Data Reviewed Today: Pertinent Labs: Blood sugars range between 98-1 19 Imaging: No new imaging Assessment and Plan: Hypertension -Continue losartan 50, hydrochlorothiazide 12.5 nightly Dyslipidemia -Continue atorvastatin 10 daily Depression -Continue Prozac 10 daily GERD -Continue famotidine 40 nightly Status post right knee surgery -Ortho note reviewed, continue pain therapy with oral [place] as needed, IV Dilaudid as needed, monitor for sedation -Bowel regimen per orthopedic surgery -Aspirin 81 twice daily for DVT prophylaxis Patient is medically optimized for discharge. Thank you for allowing us to participate in the care of this pleasant patient. Do not hesitate to contact us with questions. Someone can be reached from the [facility] hospitalist group all hours of the day at [phone] or via perfect serve. Objective - Vital Signs Vital signs: Vital Signs Temp 97.2 F L 08/26/24 07:24 Pulse 70 08/26/24 07:24 Resp 17 08/26/24 07:24 BP 126/68 08/26/24 07:24 Pulse Ox 96 08/26/24 07:24 FiO2 Intake & Output 08/25/24 08/26/24 08/26/24 18:59 06:59 18:59 Intake Total 540 300 Balance 540 300 Intake: Oral 540 300 Other: Voiding Method Toilet # Voids 3 3 - Labs CBC & Chem 7: 08/25/24 05:26 08/25/24 05:26 Labs: Abnormal Lab Results - Last 24 Hours (Table) 08/25/24 Range/Units 20:22 POC Glucose (mg/dL) 119 H (70-110) mg/dL
== END 2024-08-26 13:48 | disposition home health service (06) ==
LOC: OR 12:21 → 4SSUR 16:43 → OR 08-26 13:48
PROVIDERS: ATTEND Orthopaedic Surgery
DX: M17.11 Unilateral primary osteoarthritis, right knee (principal); E11.9 Type 2 diabetes mellitus without complications; E78.5 Hyperlipidemia, unspecified; F32.A Depression, unspecified; F41.9 Anxiety disorder, unspecified; G89.18 Other acute postprocedural pain; I10 Essential (primary) hypertension; I25.2 Old myocardial infarction; K21.9 Gastro-esophageal reflux disease without esophagitis; Z79.84 Long term (current) use of oral hypoglycemic drugs; Z79.899 Other long term (current) drug therapy; Z87.891 Personal history of nicotine dependence; Z88.6 Allergy status to analgesic agent; Z98.51 Tubal ligation status; Z98.890 Other specified postprocedural states
CPT/HCPCS: 0055T; 27447; 64447; 64999; 80053; 85025

== ENCOUNTER → 2024-12-30 | Outpatient (CLI) | payer BC ==
--- NOTE | 2024-12-30 07:59 | MM ---
Reason for Exam: Screening (asymptomatic). Last mammogram was performed 1 year(s) and 7 month(s) ago. Patient History: Menarche at age 14. First Full-Term at age 17. Postmenopausal. Hormonal Contraceptives, from age 17 until age 29. Risk Values: Maty 5 year model risk: 1.1%. NCI Lifetime model risk: 4.2%. Prior Study Comparison: 02/09/2018 Bilateral Screening Mammogram, [facility]. 04/24/2020 Bilateral Screening Mammogram, [facility]. 05/29/2023 Bilateral MG 3D screening mammo w/cad, [facility]. Tissue Density: There are scattered areas of fibroglandular density. Findings: Analyzed By CAD. There is no suspicious group of microcalcifications or new suspicious mass in either breast. Overall Assessment: Benign, BI-RAD 2 Management: Screening Mammogram of both breasts in 1 year. . Patient should continue monthly self-breast exams. A clinical breast exam by your physician is recommended on an annual basis. This exam should not preclude additional follow-up of suspicious palpable abnormalities. Note on Maty scores and lifetime risk: 1. A Maty score greater than 3% is considered moderate risk. If this is the case, consider specialist referral to assess eligibility for a risk reducing agent. 2. If overall lifetime risk for the development of breast cancer is 20% or higher, the patient may qualify for future screening with alternating mammogram and breast MRI. [facility], , 12/30/2024 7:56 AM. Electronically signed and approved by: Nando Ballard M.D. [facility]iolog[facility]
== END | disposition home or self-care (01) ==
LOC: RADMAMWWP 07:01
PROVIDERS: ATTEND Family Medicine
DX: Z12.31 Encounter for screening mammogram for malignant neoplasm of breast (principal); R92.323 Mammographic fibroglandular density, bilateral breasts; Z78.0 Asymptomatic menopausal state; Z92.0 Personal history of contraception
CPT/HCPCS: 77063; 77067